=== PATIENT | male | born 1970 | race Caucasian/White ===

== ENCOUNTER 2025-01-14 15:19 | Inpatient (IN) | payer BC, SELFPAY ==
--- NOTE | 2025-01-14 15:28 | ED.GENADULT ---
HPI - General Adult General Chief complaint: Psychiatric Symptoms Stated complaint: psych eval Time Seen by Provider: 01/14/25 16:13 Source: patient Limitations: no limitations History of Present Illness ED Provider: Patito PINK HPI narrative: 54-year-old male with a history of alcohol use disorder and hypertension presents with a vague SI. Patient states he has had symptoms for years, the every once in a while everything becomes overwhelming. Patient does not have a specific plan for self-harm, he does not have any prior attempts. In regard to his alcohol use, he states he drinks 20 nips a day, he last drank this morning. Patient was not had prior alcohol withdrawal, no seizure activity. Related Data Home Medications ?Medication ?Instructions ?Recorded ?Confirmed atenolol 25 mg tablet 25 mg PO DAILY 01/15/25 01/15/25 hydrochlorothiazide 25 mg tablet 12.5 mg PO DAILY 01/15/25 01/15/25 lisinopril 10 mg tablet 10 mg PO DAILY 01/15/25 01/15/25 metformin 500 mg tablet,extended 500 mg PO DAILY 01/15/25 01/15/25 release 24 hr rosuvastatin 40 mg tablet 20 mg PO BEDTIME 01/15/25 01/15/25 tamsulosin 0.4 mg capsule 0.4 mg PO BEDTIME 01/15/25 01/15/25 Allergies Allergy/AdvReac Type Severity Reaction Status Date / Time No Known Allergies Allergy Verified 01/14/25 15:32 Review of Systems Review of Systems: Yes all other systems are reviewed and are negative Constitutional: Constitutional: Denies fatigue and Denies fever(s) Cardiovascular: Cardiovascular: Denies chest pain and Denies dyspnea Respiratory: Respiratory: Denies dyspnea Gastrointestinal: Gastrointestinal: Denies abdominal pain, Denies nausea and Denies vomiting Endocrine: Endocrine: Denies fatigue PMFSH Past Medical History Attestation statement: The following information was validated with the patient. Social History Social History Household Members: None Housing: Apartment Do you presently have visiting nurse or other home services: No Alcohol intake: current Alcohol intake frequency: 3 or more drinks per day Alcohol type: hard liquor Patient Tobacco Use Status: Never used Tobacco Smoked in Last 30 Days: No e-Cigarette/Vaping Use: Never Used Second Hand Smoke Exposure: No Use of substances other than those prescribed or required for medical reasons: No Currently Displaying Signs/Symptoms of Drug Intoxication Withdrawal: No Any prior treatment program specific to substance use: Yes Have you been hit, kicked, punched, or otherwise hurt by someone within the past year? If so, by whom?: No Do you feel safe in your current relationship?: No Current Relationship Is there a partner from a previous relationship who is making you feel unsafe now?: No Are you made to feel afraid or neglected: No Advance Directives: No Advance Directives Information Provided: No Do you have a plan to hurt others: No Plan Recently lost weight without trying: No Eating poorly because of decreased appetite: No Nutrition Risks: No Nutritional Risk Poor oral hygiene: No Physical Exam ED Vital Signs: Vital Signs - 24 hr 01/15/25 20:10 01/16/25 06:17 Temperature 98.4 F 98.7 F Pulse Rate 77 104 H Respiratory Rate 18 18 Blood Pressure 163/85 H 152/91 H Pulse Oximetry 98 96 Oxygen Delivery Method Room Air Room Air BMI result Body Mass Index 41.2 Const Other: Alert Orientation/consciousness: patient oriented x3 Resp Effort & Inspection: normal respiratory effort Cardio Other: Normal peripheral perfusion Skin Other: Warm dry no rash Neuro General: patient oriented x3, gait normal, no focal motor deficits and CN's II-XI intact bilaterally Psych Other: Cooperative Course Course Course Narrative: RME, this is a rapid medical exam performed by Anibal Olivas please refer to primary provider for complete H&P- 54 year old male presents for evaluation of depression with suicidal ideations. He reports that he is an alcoholic and his last drink was about 4 hours ago. He reports drinking about 20 nips starting late last night, but his baseline is about 10 per day. This depression has happened in the past. Plan for medical clearance and care team evaluation Reevaluation(s) Reevaluation #1: Getting a call from the [facility], the patient was becoming anxious to see was 5 we will give 5 mg of oral Valium Time: 17:20 Reevaluation #2: Patient's CIWA is escalating it was now 7 he is tremulous and sweaty, we will initiate phenobarb protocol Time: 18:21 Reevaluation #3: Time: 20:57 Date: 01/14/25 Provider: KEERTHI Gardiner Patient in physician observation for psychiatric evaluation.? No acute events reported overnight. No current complaints. VS stable.? Patient is in bed search status/pending CARE team evaluation. Will continue to monitor. Additional Reevaluation(s): 01/15/2025; 14;38 Patient in physician observation for psychiatric evaluation.? No acute events reported overnight. No current complaints. VS stable.? Patient is in bed search status. Will continue to monitor. Time: 06:04 Date: 01/16/25 Provider: Corey Ambrose MD Patient in physician observation for psychiatric evaluation.? The patient was been in the emergency department for 38 hours. Patient was re-evaluated by the care team yesterday, patient was now a dual diagnosis admission bed search. No acute events reported overnight. No current complaints. Will continue to monitor. Time: 14:14 I Date: 01/16/25 Provider: Corey Ambrose MD Physician observation ended at 14:14. Patient to be admitted as inpatient to [facility]. Medications Administered Generic Name Dose Route Start Last Admin Trade Name Freq PRN Reason Stop Dose Admin Atenolol 25 mg 01/15/25 09:00 01/16/25 08:19 Atenolol 25 Mg Tablet PO 25 mg DAILY KYLEE Administration Atorvastatin Calcium 80 mg 01/15/25 09:00 01/16/25 08:19 Atorvastatin Calcium 80 Mg Tablet PO 80 mg DAILY KYLEE Administration Hydrochlorothiazide 12.5 mg 01/16/25 09:00 01/16/25 08:19 Hydrochlorothiazide 25 Mg Tablet PO 12.5 mg DAILY KYLEE Administration Lisinopril 10 mg 01/15/25 09:00 01/16/25 08:19 Lisinopril 10 Mg Tablet PO 10 mg DAILY KYLEE Administration Metformin HCl 500 mg 01/16/25 09:00 01/16/25 08:19 Metformin Hcl Er 500 Mg Tab.Er.24h PO 500 mg DAILY KYLEE Administration Phenobarbital 45 mg 01/15/25 09:00 01/16/25 08:19 Phenobarbital 15 Mg Tablet PO 01/16/25 21:01 45 mg BID KYLEE Administration Tamsulosin HCl 0.4 mg 01/15/25 21:00 01/15/25 20:19 Tamsulosin Hcl 0.4 Mg Capsule PO 0.4 mg BEDTIME KYLEE Administration Discontinued Medications Generic Name Dose Route Start Last Admin Trade Name Freq PRN Reason Stop Dose Admin Diazepam 5 mg 01/14/25 17:21 01/14/25 17:28 Diazepam 5 Mg Tablet PO 01/14/25 17:22 5 mg ONCE ONE Administration Diazepam 5 mg 01/15/25 13:39 01/15/25 13:50 Diazepam 5 Mg Tablet PO 01/15/25 13:40 5 mg ONCE ONE Administration Diazepam 5 mg 01/15/25 20:41 01/15/25 20:56 Diazepam 5 Mg Tablet PO 01/15/25 20:42 5 mg ONCE ONE Administration Diphenhydramine HCl 50 mg 01/15/25 02:25 01/15/25 02:35 Diphenhydramine Hcl 25 Mg Capsule PO 01/15/25 02:26 Not Given ONCE ONE Hydrochlorothiazide 25 mg 01/15/25 09:00 01/15/25 08:39 Hydrochlorothiazide 25 Mg Tablet PO 25 mg DAILY KYLEE Administration Lorazepam 2 mg 01/16/25 06:21 01/16/25 06:23 Lorazepam 1 Mg Tablet PO 01/16/25 06:22 2 mg ONCE ONE Administration Metformin HCl 500 mg 01/15/25 09:00 01/15/25 08:39 Metformin Hcl 500 Mg Tablet PO 500 mg DAILY KYLEE Administration Ondansetron HCl 4 mg 01/14/25 15:57 01/14/25 16:00 Ondansetron Odt 4 Mg Tab.Rapdis TRANSLINGU 01/14/25 15:58 4 mg ONCE ONE Administration Phenobarbital Sodium 212 mg 01/14/25 22:00 01/15/25 01:05 Phenobarbital Sodium 130 Mg/Ml Vial Im Q3hx2 IM 01/15/25 01:01 212 mg 0100,2200 KYLEE Administration Phenobarbital Sodium 283 mg 01/14/25 19:00 01/14/25 19:30 Phenobarbital Sodium 130 Mg/Ml Im Once IM 01/14/25 19:01 283 mg ONCE@1900 KYLEE Administration Medical Decision Making Medical Decision Making MDM Narrative: 54-year-old male with a history of alcohol use disorder and hypertension presents with a vague SI. Patient states he has had symptoms for years, the every once in a while everything becomes overwhelming. Patient does not have a specific plan for self-harm, he does not have any prior attempts. In regard to his alcohol use, he states he drinks 20 nips a day, he last drank this morning. Patient was not had prior alcohol withdrawal, no seizure activity. Problem: Alcohol abuse History: Per patient I have considered the following differential diagnoses: SI, HI, decompensated psychiatric illness, drug/alcohol intoxication Plan: Screening labs including serum ethanol and drug screen were obtained from triage, the patient will be assessed by the care team once clinically sober. I have independently reviewed the following tests: Labs: No leukocytosis, not anemic, no electrolyte abnormality, ethanol 174, drug screen Lab Data 01/14/25 16:01 01/14/25 16:01 Labs: Lab Results 01/14/25 01/14/25 01/15/25 Range/Units 16:01 17:32 21:03 WBC 5.1 (4.8-10.8) X10*3/uL RBC 5.15 (4.60-5.80) X10*6/uL Hgb 16.3 (14.0-18.0) g/dl Hct 47.2 (42.0-52.0) % MCV 91.7 (80.0-98.0) fL MCH 31.7 (27.0-33.0) pg MCHC 34.5 (31.0-36.0) g/dl RDW 12.6 (11.0-16.0) % Plt Count 281 (160-400) X10*3/uL MPV 9.3 L (9.4-12.4) fL Immature Gran % (Auto) 0.2 (0.0-0.4) % Neut % (Auto) 52.9 (45-73) % Lymph % (Auto) 35.2 (20-40) % Keith % (Auto) 9.7 (2-11) % Eos % (Auto) 1.0 (0-4) % Baso % (Auto) 1.0 (0-2) % Lymph # (Auto) 1.8 (1.2-4.9) X10*3/uL Keith # (Auto) 0.5 (0.1-1.2) X10*3/uL Eos # (Auto) 0.1 (0.0-0.4) X10*3/uL Baso # (Auto) 0.1 (0.0-0.2) X10*3/uL Abs Immat Gran (auto) 0.01 (0.00-0.03) X10*3/uL Absolute Neuts (auto) 2.7 (2.0-8.3) x10*3/uL Absolute Nucleated RBC 0.000 (0.0-0.012) X10*3/uL Nucleated RBC % (auto) 0.0 (0.0-0.2) /100WBC Sodium 139 (135-145) mmol/L Potassium 4.2 (3.3-5.1) mmol/L Chloride 99 (96-108) mmol/L Carbon Dioxide 27 (22-29) mmol/L Anion Gap 17 (12-20) BUN 16 (9-16) mg/dL Creatinine 1.24 (0.5-1.4) mg/dL Estim Creat Clear Calc 89.6 Estimated GFR > 60 POC Glucose 149 H (60-115) mg/dL Random Glucose 186 H (60-115) mg/dL Calcium 9.5 (8.4-10.2) mg/dL Total Bilirubin 1.1 H (0.0-1.0) mg/dL AST 181 H (5-37) U/L ALT 149 H (0-40) U/L Alkaline Phosphatase 62 (39-117) U/L Total Protein 7.9 (6.5-8.0) g/dL Albumin 4.5 (3.5-5.0) g/dL Urine Color Yellow Urine Appearance Clear Urine pH 5.5 (5.0-9.0) Ur Specific Leupp 1.020 (1.005-1.025) Urine Protein 100 (2+) H (Neg-Trace) mg/dL Urine Glucose (UA) Negative (Negative) mg/dL Urine Ketones Trace (Negative) mg/dL Urine Blood Small (1+) H (Negative) Urine Nitrite Negative (Negative) Ur Leukocyte Esterase Negative (Negative) Urine RBC 0-2 (0-2) /HPF Urine WBC 0-5 (0-5) /HPF Ur Squamous Epith Cells 0-2 (0-2) /HPF Other Crystals Present Urine Bacteria None Seen (None Seen) Hyaline Casts 3-5 (0-2) /LPF Salicylates < 5.0 L (15-30) mg/dL Urine Opiates Screen Not Detected (Not Detect) Ur Buprenorphine Scrn Not Detected (Not Detect) ng/mL Ur Oxycodone Screen Not Detected (Not Detect) ng/mL Urine Methadone Screen Not Detected (Not Detect) ng/mL Urine Fentanyl Screen Not Detected (Not Detect) Acetaminophen < 3 (<30) mcg/mL Ur Barbiturates Screen Not Detected (Not Detect) Ur Phencyclidine Scrn Not Detected (Not Detect) Ur Amphetamines Screen Not Detected (Not Detect) U Benzodiazepines Scrn Not Detected (Not Detect) Urine Cocaine Screen Not Detected (Not Detect) U Marijuana (THC) Screen Not Detected (Not Detect) Ethyl Alcohol 174 mg/dL 01/16/25 Range/Units 06:13 WBC (4.8-10.8) X10*3/uL RBC (4.60-5.80) X10*6/uL Hgb (14.0-18.0) g/dl Hct (42.0-52.0) % MCV (80.0-98.0) fL MCH (27.0-33.0) pg MCHC (31.0-36.0) g/dl RDW (11.0-16.0) % Plt Count (160-400) X10*3/uL MPV (9.4-12.4) fL Immature Gran % (Auto) (0.0-0.4) % Neut % (Auto) (45-73) % Lymph % (Auto) (20-40) % Keith % (Auto) (2-11) % Eos % (Auto) (0-4) % Baso % (Auto) (0-2) % Lymph # (Auto) (1.2-4.9) X10*3/uL Keith # (Auto) (0.1-1.2) X10*3/uL Eos # (Auto) (0.0-0.4) X10*3/uL Baso # (Auto) (0.0-0.2) X10*3/uL Abs Immat Gran (auto) (0.00-0.03) X10*3/uL Absolute Neuts (auto) (2.0-8.3) x10*3/uL Absolute Nucleated RBC (0.0-0.012) X10*3/uL Nucleated RBC % (auto) (0.0-0.2) /100WBC Sodium (135-145) mmol/L Potassium (3.3-5.1) mmol/L Chloride (96-108) mmol/L Carbon Dioxide (22-29) mmol/L Anion Gap (12-20) BUN (9-16) mg/dL Creatinine (0.5-1.4) mg/dL Estim Creat Clear Calc Estimated GFR POC Glucose 153 H (60-115) mg/dL Random Glucose (60-115) mg/dL Calcium (8.4-10.2) mg/dL Total Bilirubin (0.0-1.0) mg/dL AST (5-37) U/L ALT (0-40) U/L Alkaline Phosphatase (39-117) U/L Total Protein (6.5-8.0) g/dL Albumin (3.5-5.0) g/dL Urine Color Urine Appearance Urine pH (5.0-9.0) Ur Specific Leupp (1.005-1.025) Urine Protein (Neg-Trace) mg/dL Urine Glucose (UA) (Negative) mg/dL Urine Ketones (Negative) mg/dL Urine Blood (Negative) Urine Nitrite (Negative) Ur Leukocyte Esterase (Negative) Urine RBC (0-2) /HPF Urine WBC (0-5) /HPF Ur Squamous Epith Cells (0-2) /HPF Other Crystals Urine Bacteria (None Seen) Hyaline Casts (0-2) /LPF Salicylates (15-30) mg/dL Urine Opiates Screen (Not Detect) Ur Buprenorphine Scrn (Not Detect) ng/mL Ur Oxycodone Screen (Not Detect) ng/mL Urine Methadone Screen (Not Detect) ng/mL Urine Fentanyl Screen (Not Detect) Acetaminophen (<30) mcg/mL Ur Barbiturates Screen (Not Detect) Ur Phencyclidine Scrn (Not Detect) Ur Amphetamines Screen (Not Detect) U Benzodiazepines Scrn (Not Detect) Urine Cocaine Screen (Not Detect) U Marijuana (THC) Screen (Not Detect) Ethyl Alcohol mg/dL Discharge Plan Discharge Clinical Impression: Suicidal ideation, Alcohol use disorder, Alcohol withdrawal Patient Disposition: Admitted As Inpatient Interventions: Admission Worksheet (ED) Last Done: 01/16/25 13:54 Discharge Date/Time: 01/16/25 14:10
[2025-01-14 15:30] VITALS: BP 147/96; PULSE 109; RESP 18; TEMP 36.8; O2SAT 94; BMI 41.2
--- NOTE | 2025-01-14 15:33 | ECG_ITS ---
Test Reason : AGE>50 Blood Pressure : */* mmHG Vent. Rate : 108 BPM Atrial Rate : 108 BPM P-R Int : 186 ms QRS Dur : 90 ms QT Int : 332 ms P-R-T Axes : 36 50 1 degrees QTcB Int : 444 ms Sinus tachycardia cannot exclude old Inferior infarct , age undetermined cannot exclude old Anterior infarct , age undetermined Abnormal ECG No previous ECGs available Referred By: Sean Olivas Electronically Signed By: HAL OHARA
[2025-01-14] MEDS: Ondansetron ODT 4 MG TAB.RAPDIS TRANSLINGU (16:00)
--- OUTSIDE RECORDS SUMMARY | 2025-01-14 16:03 | XMS_ITS | Clinical Summary ---
Author Organization [address] [place] [address] [place] [id number] Phone Care Team Providers Care [employer] Name Role Phone Unavailable Primary Care Provider Unavailabl e Allergies No known active allergies Medications hydroCHLOROthia zide (MICROZIDE) 12.5 mg capsule Take 1 capsule (12.5 mg total) by mouth. 10/24/2019 Active FLUoxetine (PROzac) 40 mg capsule Take 1 capsule (40 mg total) by mouth 1 (one) time each day. 10/24/2019 Active Medical History Medical History Date Comments Hypertension DX:Hypertension Social History Tobacco Use Types Packs/Day Years Used Date Smoking Tobacco: Never Smokeless Tobacco: Never Alcohol Use Standard Drinks/Week Comments Yes 0 (1 standard drink = 0.6 oz pur e alcohol) Sex and Gender Information Value Date Recorded Sex Assigned at Not on file Legal Sex Male 12:31 PM EST Gender Identity Not on file Sexual Orientation Not on file Obstetrics History Last Filed Vital Signs Vital Sign Reading Time Taken Comments Blood Pressure 156/70 08/01/2024 5:45 PM EST Pulse 88 08/01/2024 5:45 PM EST Temperature 36.8 ??C (98.2 ??F) 08/01/2024 5:45 PM ES T Respiratory Rate - - Oxygen Saturation 98% 08/01/2024 5:45 PM EST Inhaled Oxygen Concentration - - Weight - - Height - - Body Mass Index - - Plan of Treatment Health Maintenance Due Date Last Done Comments Diabetes: Annual Foot Exam 1980 Diabetes: Annual Retina Eye Exam 1980 Hepatitis B Vaccines (1 of 3 - 19+ 3-dose series) 1989 Pneumococcal Vaccine: 50+ Years (2 of 2 - PCV) 2020 02/22/2018 Zoster Vaccines (1 of 2) 2020 Diabetes: Annual GFR (Glomerular Filtration Rate) 10/23/2020 10/23/2019 COVID-19 Vaccine (4 - 2023-2 5 season) 2024 08/22/2021, 12/10/2020, 11/19/2020 Cholesterol Screening (Lipid Panel) 08/01/2024 Colorectal Cancer Screening: Colonoscopy 08/01/2024 Depression Screening 08/01/2024 Diabetes: Annual Urine Albumin-Creatinine Ratio (uACR) 08/01/2024 Diabetes: Blood Sugar Contro l Test (HGBA1C) 08/01/2024 HIV Screening 08/01/2024 Hepatitis C Screening 08/01/2024 Hypertension/CHF/CAD Annual BMP Blood Test 08/01/2024 10/23/2019 Social Influencers of Health Screening 08/01/2024 Influenza Vaccine (Season Ended) 2025 DTaP,Tdap,and Td Vaccines (2 - Td or Tdap) 02/23/2028 02/22/2018 Pneumococcal Vaccine: Pediatrics (0 to 5 Years) and At-Risk Patients (6 to 64 Years) Aged Out 02/22/2018 No longer eligible b ased on patient's age to complete this topic HIB Vaccines Aged Out No longer eligi ble based on patient's age to complete this topic HPV Vaccines Aged Out No longer eligi ble based on patient's age to complete this topic Hepatitis A Vaccines Aged Out No long er eligible based on patient's age to complete this topic IPV Vaccines Aged Out No longer eligi ble based on patient's age to complete this topic MMR Vaccines Aged Out No longer eligi ble based on patient's age to complete this topic Meningococcal ACWY Vaccine Aged Out N o longer eligible based on patient's age to complete this topic Meningococcal B Vaccine Aged Out No l onger eligible based on patient's age to complete this topic RSV Immunization Patients Under 20 months Aged Out No longer eligible b ased on patient's age to complete this topic Varicella Vaccines Aged Out No longer eligible based on patient's age to complete this topic Insurance [facility]
[2025-01-14 16:12] LABS: MANUAL DIFF FLAG NO
[2025-01-14 16:14] LABS: Basophils Absolute Auto 0.1 X10*3/uL (0.0-0.2); Eosinophils Absolute Auto 0.1 X10*3/uL (0.0-0.4); Hematocrit 47.2 % (42.0-52.0); Hemoglobin 16.3 g/dl (14.0-18.0); Imm Gran Abs Auto 0.01 X10*3/uL (0.00-0.03); Imm Gran Pct Auto 0.2 % (0.0-0.4); Lymphocytes Absolute Auto 1.8 X10*3/uL (1.2-4.9); Lymphocytes Percent Auto 35.2 % (20-40); Mean Corpuscular HGB Conc 34.5 g/dl (31.0-36.0); Mean Corpuscular Hemoglobin 31.7 pg (27.0-33.0); Mean Corpuscular Volume 91.7 fL (80.0-98.0); Mean Platelet Volume 9.3 fL (9.4-12.4); Monocytes Absolute Auto 0.5 X10*3/uL (0.1-1.2); Monocytes Percent Auto 9.7 % (2-11); Neutrophils Absolute Auto 2.7 x10*3/uL (2.0-8.3); Neutrophils Percent Auto 52.9 % (45-73); Platelet Count 281 X10*3/uL (160-400); Red Blood Count 5.15 X10*6/uL (4.60-5.80); Red Cell Distribution Width 12.6 % (11.0-16.0); White Blood Count 5.1 X10*3/uL (4.8-10.8)
[2025-01-14 16:29] LABS: Acetaminophen LAB < 3 mcg/mL (<30); Alanine Aminotransferase 149 U/L (0-40); Albumin Level 4.5 g/dL (3.5-5.0); Alkaline Phosphatase 62 U/L (39-117); Anion Gap 17 (12-20); Aspartate Amino Transferase 181 U/L (5-37); Bilirubin Total 1.1 mg/dL (0.0-1.0); Blood Urea Nitrogen 16 mg/dL (9-16); Calcium 9.5 mg/dL (8.4-10.2); Carbon Dioxide 27 mmol/L (22-29); Chloride 99 mmol/L (96-108); Creatinine Clr Calc Pharmacy 89.6; Estimated Glomerular Filt Rate > 60; Ethanol 174 mg/dL; Glucose Random 186 mg/dL (60-115); Potassium 4.2 mmol/L (3.3-5.1); Salicylate < 5.0 mg/dL (15-30); Sodium 139 mmol/L (135-145); Total Protein 7.9 g/dL (6.5-8.0)
[2025-01-14] MEDS: diazePAM 5 MG TABLET PO (17:28)
[2025-01-14 17:39] LABS: Appearance Urine Clear; Color Urine Yellow; Glucose Urine UA Negative (Negative); Leukocyte Esterase Urine Negative (Negative); Nitrite Urine Negative (Negative); PH 5.5 (5.0-9.0); UMIC TRIGGER UACC YES; Urine Blood Small (1+) (Negative); Urine Ketones Trace mg/dL (Negative); Urine Protein 100 (2+) mg/dL (Neg-Trace)
[2025-01-14 17:46] LABS: Bacteria Urine None Seen (None Seen); Other Crystals Urine Present; RBC Urine 0-2 /HPF (0-2); Squamous Epithelial Cell Urine 0-2 /HPF (0-2); WBC Urine 0-5 /HPF (0-5)
[2025-01-14 17:48] LABS: Amphetamine Screen Urine Not Detected (Not Detect); Barbiturates, Urine Not Detected (Not Detect); Benzodiazepines Screen Urine Not Detected (Not Detect); Buprenorphine Scr Not Detected (Not Detect); Cannabinoid Screen Urine Not Detected (Not Detect); Cocaine Screen Urine Not Detected (Not Detect); Fentanyl, urine Not Detected (Not Detect); Methadone Screen, Urine Not Detected (Not Detect); Opiate Screen Urine Not Detected (Not Detect); Oxycodone Screen Urine Not Detected (Not Detect); Phencyclidine Screen Urine Not Detected (Not Detect)
[2025-01-14 19:13] VITALS: BP 141/96; PULSE 111; RESP 20; TEMP 36.8; O2SAT 97
[2025-01-14] MEDS: PHENobarbitaL sodium 130 MG/ML IM ONCE 283 MG IM (19:30)
[2025-01-14] MEDS: PHENobarbitaL sodium 130 MG/ML VIAL IM Q3Hx2 212 MG IM (22:11)
[2025-01-15] VITALS (7 sets, daily range): BP systolic 119–170; BP diastolic 81–101; PULSE 77–120; RESP 16–20; TEMP 36.8–37.1; O2SAT 96–99
[2025-01-15] MEDS: PHENobarbitaL sodium 130 MG/ML VIAL IM Q3Hx2 212 MG IM (01:05)
--- NOTE | 2025-01-15 02:46 | PC.NURSE ---
patient offered benadryl for insmonia and declined i ant to be awake for whats going to happen tomorrow' seemed odd in presentation.
--- NOTE | 2025-01-15 08:15 | PC.NURSE ---
Ambulatory in department. Reporting feeling increased anxiety. Is calm and cooperative.
[2025-01-15] MEDS: metFORMIN HCl 500 MG TABLET PO (08:39)
[2025-01-15] MEDS: PHENobarbitaL 15 MG TABLET 45 MG PO ×2 (08:39→20:20)
[2025-01-15] MEDS: hydroCHLOROthiazide 25 MG TABLET PO (08:39)
[2025-01-15] MEDS: atenoloL 25 MG TABLET PO (08:39)
[2025-01-15] MEDS: Atorvastatin Calcium 80 MG TABLET PO (08:40)
[2025-01-15] MEDS: lisinopriL 10 MG TABLET PO (08:40)
--- NOTE | 2025-01-15 12:01 | PHA.MEDREC ---
Pharmacy Consult ? Medication Reconciliation Pharmacy has completed the medication reconciliation. Reviewed med rec done by nursing and [facility]Z [facility] 1/2 tab daily. Nurse Piedad confirmed with patient he takes 1/2 tab daily.
[2025-01-15] MEDS: diazePAM 5 MG TABLET PO ×2 (13:50→20:56)
--- NOTE | 2025-01-15 14:02 | MHC.CARE ---
Dispostion changed from ADult inpatient psychiatric admission to Dual DX admission
[2025-01-15] MEDS: Tamsulosin HCL 0.4 MG CAPSULE PO (20:19)
[2025-01-15 21:06] LABS: Glucose, Whole Blood 149 mg/dL (60-115)
--- NOTE | 2025-01-16 04:13 | PC.NURSE ---
Patient slept though the night, no distress observed/reported, meds and meals compliant, 15 minutes safety check, no behavior and safety concerns, Patient is on Phenobarbital for ETOH withdrawal, disposition per care team is dual diagnosis bed search, will continue to monitor.
[2025-01-16 06:17] VITALS: BP 152/91; PULSE 104; RESP 18; TEMP 37.1; O2SAT 96
[2025-01-16 06:17] LABS: Glucose, Whole Blood 153 mg/dL (60-115)
[2025-01-16] MEDS: LORazepam 1 MG TABLET 2 MG PO (06:23)
--- NOTE | 2025-01-16 07:04 | PC.NURSE ---
Assumed care of pt at 6:45. Pt appears to be sleeping. Respirations even and unlabored. No apparent distress. Continue plan of care for dual diagnosis.
[2025-01-16] MEDS: atenoloL 25 MG TABLET PO (08:19)
[2025-01-16] MEDS: hydroCHLOROthiazide 25 MG TABLET 12.5 MG PO (08:19)
[2025-01-16] MEDS: metFORMIN HCl ER 500 MG TAB.ER.24H PO (08:19)
[2025-01-16] MEDS: lisinopriL 10 MG TABLET PO (08:19)
[2025-01-16] MEDS: PHENobarbitaL 15 MG TABLET 45 MG PO ×2 (08:19→21:18)
[2025-01-16] MEDS: Atorvastatin Calcium 80 MG TABLET PO (08:19)
[2025-01-16 14:21] VITALS: BMI 40.0
[2025-01-16 14:25] VITALS: BP 153/92; PULSE 76; RESP 20; TEMP 37.2; O2SAT 96
--- NOTE | 2025-01-16 15:51 | P.HPPS_ITS ---
[facility] Date of Service: 01/16/25 Chief Complaint: Crisis Sources of Information: patient interviewed, chart reviewed and crisis/core team assessment reviewed HPI Subjective Notes: Wade Warning and Conditional Voluntary Narrative: Patient is a 54-year-old male with history of MDD, PTSD, alcohol use disorder who self presented to ER due to suicidal ideation secondary to increased depression. Per crisis report, patient presented to ED due to suicidal ideation stating he wants whatever we will make me feel better. Patient reports he has been using alcohol as a coping mechanism for his depression and anxiety. He reports lack of motivation to go to work, racing thoughts, heightened worry and daily stomach pain attributed to anxiety. Tearful during assessment. He reports poor sleep due to racing thoughts. Patient does not take any psychiatric medications at this time. History of 1 prior psychiatric admission 4 years ago due to worsening depression. Denies history of SA/SIB. History of detox admissions. He reports he has never been sober. ETOH level 174 in ER. He reports drinking 20 nips daily. During admission assessment, patient presents alert and oriented x3. Calm and cooperative. Patient reports feeling anxious and depressed; patient reports he feels that his drinking has become more. Patient stated, work has been getting stressful. My girlfriend wants our relationship to be more serious. I have anxiety and to calm my nerves, alcohol is the only thing that calms me down . History of taking Prozac for 2-3 years which he reports was not beneficial and side effects of decreased libido. Patient reports last time he was sober was over 10 years ago. Patient states suicidal ideation with no plan. Denies history of withdrawal seizures. Patient reports he is interested in obtaining a recovery engineer and being referred to a substance abuse program. He reports he would also like referrals to outpatient psychiatric providers. Discussed starting on Wellbutrin and Abilify; risks/benefits reviewed. Past Psychiatric History: Patient does not have outpatient psychiatric providers. Denies history of SA/SIB. History of detox admission. History of 1 prior inpatient psychiatric hospitalization, 4 years ago due to increased depression. History of taking Prozac; patient reports he believes it was not beneficial and he reports side effects of decreased libido. Medical Evaluation Reviewed: Yes PMFSH Family History: Mother: Depression Aunt: Depression Social History: Lives alone. Single. No kids. 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 Some college. Substance History: Patient reports drinking 15 nips a day for the past 3 years. Denies any other substance use. Trauma History: Yes Diagnostics Vital Signs (24Hr): Vital Signs - 24 hr 01/15/25 20:10 01/16/25 06:17 01/16/25 14:25 Temperature 98.4 F 98.7 F 98.9 F Pulse Rate 77 104 H 76 Respiratory Rate 18 18 20 Blood Pressure 163/85 H 152/91 H 153/92 H Pulse Oximetry 98 96 96 Oxygen Delivery Method Room Air Room Air Room Air BMI result Body Mass Index 40.0 Labs 01/14/25 16:01 01/14/25 16:01 Labs: Laboratory Results - last 48 hr 01/14/25 01/14/25 01/15/25 16:01 17:32 21:03 WBC 5.1 RBC 5.15 Hgb 16.3 Hct 47.2 MCV 91.7 MCH 31.7 MCHC 34.5 RDW 12.6 Plt Count 281 MPV 9.3 L Immature Gran % (Auto) 0.2 Neut % (Auto) 52.9 Lymph % (Auto) 35.2 [place] % (Auto) 9.7 Eos % (Auto) 1.0 Baso % (Auto) 1.0 Lymph # (Auto) 1.8 [place] # (Auto) 0.5 Eos # (Auto) 0.1 Baso # (Auto) 0.1 Abs Immat Gran (auto) 0.01 Absolute Neuts (auto) 2.7 Absolute Nucleated RBC 0.000 Nucleated RBC % (auto) 0.0 Sodium 139 Potassium 4.2 Chloride 99 Carbon Dioxide 27 Anion Gap 17 BUN 16 Creatinine 1.24 Estim Creat Clear Calc 89.6 Estimated GFR > 60 POC Glucose 149 H Random Glucose 186 H Calcium 9.5 Total Bilirubin 1.1 H AST 181 H ALT 149 H Alkaline Phosphatase 62 Total Protein 7.9 Albumin 4.5 Urine Color Yellow Urine Appearance Clear Urine pH 5.5 Ur Specific [place] 1.020 Urine Protein 100 (2+) H Urine Glucose (UA) Negative Urine Ketones Trace Urine Blood Small (1+) H Urine Nitrite Negative Ur Leukocyte Esterase Negative Urine RBC 0-2 Urine WBC 0-5 Ur Squamous Epith Cells 0-2 Other Crystals Present Urine Bacteria None Seen Hyaline Casts 3-5 Salicylates < 5.0 L Urine Opiates Screen Not Detected Ur Buprenorphine Scrn Not Detected Ur Oxycodone Screen Not Detected Urine Methadone Screen Not Detected Urine Fentanyl Screen Not Detected Acetaminophen < 3 Ur Barbiturates Screen Not Detected Ur Phencyclidine Scrn Not Detected Ur Amphetamines Screen Not Detected U Benzodiazepines Scrn Not Detected Urine Cocaine Screen Not Detected U Marijuana (THC) Screen Not Detected Ethyl Alcohol 174 01/16/25 06:13 WBC RBC Hgb Hct MCV MCH MCHC RDW Plt Count MPV Immature Gran % (Auto) Neut % (Auto) Lymph % (Auto) [place] % (Auto) Eos % (Auto) Baso % (Auto) Lymph # (Auto) [place] # (Auto) Eos # (Auto) Baso # (Auto) Abs Immat Gran (auto) Absolute Neuts (auto) Absolute Nucleated RBC Nucleated RBC % (auto) Sodium Potassium Chloride Carbon Dioxide Anion Gap BUN Creatinine Estim Creat Clear Calc Estimated GFR POC Glucose 153 H Random Glucose Calcium Total Bilirubin AST ALT Alkaline Phosphatase Total Protein Albumin Urine Color Urine Appearance Urine pH Ur Specific [place] Urine Protein Urine Glucose (UA) Urine Ketones Urine Blood Urine Nitrite Ur Leukocyte Esterase Urine RBC Urine WBC Ur Squamous Epith Cells Other Crystals Urine Bacteria Hyaline Casts Salicylates Urine Opiates Screen Ur Buprenorphine Scrn Ur Oxycodone Screen Urine Methadone Screen Urine Fentanyl Screen Acetaminophen Ur Barbiturates Screen Ur Phencyclidine Scrn Ur Amphetamines Screen U Benzodiazepines Scrn Urine Cocaine Screen U Marijuana (THC) Screen Ethyl Alcohol Meds/Allergies Meds Home Medications ?Medication ?Instructions ?Recorded ?Confirmed ?Type atenolol 25 mg tablet 25 mg PO DAILY 01/15/25 01/15/25 History hydrochlorothiazide 25 mg tablet 12.5 mg PO DAILY 01/15/25 01/15/25 History lisinopril 10 mg tablet 10 mg PO DAILY 01/15/25 01/15/25 History metformin 500 mg tablet,extended 500 mg PO DAILY 01/15/25 01/15/25 History release 24 hr rosuvastatin 40 mg tablet 20 mg PO BEDTIME 01/15/25 01/15/25 History tamsulosin 0.4 mg capsule 0.4 mg PO BEDTIME 01/15/25 01/15/25 History Allergies Allergies Allergy/AdvReac Type Severity Reaction Status Date / Time No Known Allergies Allergy Verified 01/14/25 15:32 Mental Status Exam Mental Status Exam Narrative: Pt is alert and oriented; behavior is cooperative and calm; dressed in casual attire; mood is described as anxious and depressed ; eye contact appropriate; Speech is normal rate, volume and not pressured; thought process is organized and goal directed; Thought content is on tx; denies HI/VH/AH. Patient reports suicidal ideation with no plan. Assessment & Plan Assessment & Plan (1) MDD (major depressive disorder), recurrent episode, moderate: Status: Acute Code(s): F33.1 - Major depressive disorder, recurrent, moderate (2) PTSD (post-traumatic stress disorder): Status: Acute Code(s): F43.10 - Post-traumatic stress disorder, unspecified (3) Alcohol use disorder: Status: Acute Code(s): F10.90 - Alcohol use, unspecified, uncomplicated Plan Patient is a 54-year-old male with history of MDD, PTSD, alcohol use disorder who self presented to ER due to suicidal ideation secondary to increased depression. Plan: CV 15 minute safety checks Continue home medications Start: Wellbutrin XL 150 mg PO daily Abilify 2 mg PO bedtime CIWA protocol-continue phenobarbital taper from ED Obtain collateral Encourage groups Consult to addiction medicine Referral to outpatient psychiatric providers Referral to substance abuse program Discharge planning Patient educated on: diagnosis and medication risk/benefits Reason for continued inpatient stay Substantial Risk for: harm to self and med/psych decompensation Statement Statement: I have reviewed the history and physical and performed a pertinent examination on my patient. No changes have occurred unless specified. If the History and Physical was not performed prior to admission, the Hospitalist's service will be consulted for completing the admission physical. Time Spent With Patient Time: Total time managing care of this patient today _60___ minutes.
--- NOTE | 2025-01-16 16:31 | PC.ADMIT ---
This is the 1st admission for this 54 y.o. male to [facility] at [facility]. Referred by [facility] Care Team with Dx: Major Depressive D/O moderate, Generalized Anxiety D/O, Alcohol Use D/O severe. Nurse to nurse done with [facility] ED Pod prior to admission. Meds verified while in ED Pod, admission orders received from prescriber, Louise Pickering. Arrived on unit at 1414 on [address] and placed on 15 min safety checks. Signed Conditional Voluntary after meeting with prescriber. Precipitating events to admission: self presented to [facility] ED with c/o excessive etoh use, worsening anxiety, depression with SI with no plan or prior attempts. Reported having Dx of OCD, ruminating/perseverating on worse case scenarios for every situation. Medical issues: Hx Htn, enlarged prostrate, type 2 diabetes. Substance issues: Reports drinking 20 nips daily, last drink 01/14/25. CIWA 10 on initial assessment upon admission, currently on Phenobarbital taper for withdrawal. Denies hx withdrawal seizures. Reports he dry heaves when withdrawing as part of anxiety. Reports last dry heaving episode this am upon waking in ED Pod. Reported intermittent waves of nausea during admission process. Reported dark urine due to lack of fluid intake. Provided pitcher of ice water, eating supper in community area at present time. Skin assessment done upon admission with 2 staff present. Cooperative with admission process. Alert and oriented x4. Rates depression and anxiety #10 on scale 1-10(10 worse). Reports SI, no plan or intent. States he would not do this to his sister or mother. Reports recent stressors as sister's Dx of ovarian Ca with surgery, [id number] passing away prior to that. 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 States he got ex-girlfriend involved to help out, but has to pay her.
[2025-01-16 20:00] VITALS: BP 133/82; PULSE 69; RESP 20; TEMP 36.2; O2SAT 99
[2025-01-16] MEDS: ARIPiprazole 2 MG TABLET PO (23:02)
[2025-01-16] MEDS: Tamsulosin HCL 0.4 MG CAPSULE PO (23:02)
[2025-01-16 23:50] VITALS: BP 134/70; PULSE 78; RESP 16; TEMP 36.6; O2SAT 99
[2025-01-17 04:00] VITALS: BP 115/75; PULSE 80; RESP 16; TEMP 36.4; O2SAT 98
[2025-01-17 07:35] VITALS: BP 122/66; PULSE 78; RESP 16; TEMP 36.9; O2SAT 98
[2025-01-17] MEDS: Atorvastatin Calcium 80 MG TABLET PO (08:56)
[2025-01-17] MEDS: lisinopriL 10 MG TABLET PO (08:57)
[2025-01-17] MEDS: buPROPion HCl XL 150 MG TAB.ER.24H PO (08:57)
[2025-01-17] MEDS: Thiamine HCL 100 MG TABLET PO (08:57)
[2025-01-17] MEDS: metFORMIN HCl ER 500 MG TAB.ER.24H PO (08:57)
[2025-01-17] MEDS: atenoloL 25 MG TABLET PO (08:57)
[2025-01-17] MEDS: PHENobarbitaL 15 MG TABLET PO ×2 (08:57→20:32)
[2025-01-17 09:04] LABS: Alanine Aminotransferase 123 U/L (0-40); Albumin Level 4.3 g/dL (3.5-5.0); Alkaline Phosphatase 58 U/L (39-117); Anion Gap 14 (12-20); Aspartate Amino Transferase 157 U/L (5-37); Bilirubin Total 0.9 mg/dL (0.0-1.0); Blood Urea Nitrogen 19 mg/dL (9-16); Calcium 8.9 mg/dL (8.4-10.2); Carbon Dioxide 28 mmol/L (22-29); Chloride 97 mmol/L (96-108); Cholesterol 166 mg/dL (<200); Creatinine Clr Calc Pharmacy 102.2; Estimated Glomerular Filt Rate > 60; Glucose Random 157 mg/dL (60-115); HDL Cholesterol 48 mg/dL (>40); LDL Cholesterol Calculated 41 mg/dL (<100); Potassium 3.6 mmol/L (3.3-5.1); Sodium 135 mmol/L (135-145); Total Protein 7.3 g/dL (6.5-8.0); Triglycerides 386 mg/dL (<150)
[2025-01-17 09:05] LABS: Estimated Average Glucose 177 mg/dL; Hemoglobin A1C 226.3483 umol/L; Hemoglobin A1c % 7.8 % (<6.0); Total Hemoglobin (HGBA1C) 3670.2885 umol/L
[2025-01-17] MEDS: hydroCHLOROthiazide 25 MG TABLET 12.5 MG PO (09:29)
--- NOTE | 2025-01-17 10:23 | P.PNPSI_ITS ---
Subjective Subjective Date of Service: 01/17/25 Reason For Visit: Crisis Subjective Notes: Conditional Voluntary Interim History: Showered. keeping to self. Depressed. Anxious. Patient reports passive suicidal ideation; pt stated, I'm tired of dealing with life . denies any plan or intent. Continue with phenobarbital taper and CIWA. Patient reports nausea; start: Zofran 8mg PO Q8HR PRN. per nursing, slept 7 hours. denies HI/VH/AH. Continue current tx plan. Medication Compliance: Yes Side effects from medications: No Attending Groups: Intermittent Mental Status Exam Mental Status Exam Narrative: Pt is alert and oriented; behavior is cooperative and calm; dressed in casual attire; mood is described as anxious and depressed ; eye contact appropriate; Speech is normal rate, volume and not pressured; thought process is organized and goal directed; Thought content is on tx; denies HI/VH/AH. Patient reports suicidal ideation with no plan. Diagnostics Vital Signs (24Hr): Vital Signs - 24 hr 01/16/25 14:25 01/16/25 20:00 01/16/25 23:50 Temperature 98.9 F 97.1 F 97.8 F Pulse Rate 76 69 78 Respiratory Rate 20 20 16 Blood Pressure 153/92 H 133/82 134/70 Pulse Oximetry 96 99 99 Oxygen Delivery Method Room Air Room Air Room Air 01/17/25 04:00 01/17/25 07:35 Temperature 97.5 F 98.4 F Pulse Rate 80 78 Respiratory Rate 16 16 Blood Pressure 115/75 122/66 Pulse Oximetry 98 98 Oxygen Delivery Method CPAP Room Air BMI result Body Mass Index 40.0 Labs 01/14/25 16:01 01/17/25 08:04 Labs: Laboratory Results - last 48 hr 01/15/25 01/16/25 01/17/25 21:03 06:13 08:04 Sodium 135 Potassium 3.6 Chloride 97 Carbon Dioxide 28 Anion Gap 14 BUN 19 H Creatinine 1.07 Estim Creat Clear Calc 102.2 Estimated GFR > 60 POC Glucose 149 H 153 H Random Glucose 157 H Estimat Average Glucose 177 Hemoglobin A1c % 7.8 H Calcium 8.9 D Total Bilirubin 0.9 AST 157 H ALT 123 H Alkaline Phosphatase 58 Total Protein 7.3 Albumin 4.3 Triglycerides 386 H Cholesterol 166 LDL Cholesterol, Calc 41 HDL Cholesterol 48 Medications Medications Current Medications Acetaminophen (Acetaminophen 325 Mg Tablet) 650 mg PO Q6H PRN PRN Reason: Headache/Pain, Scale 1-10 Al Hydroxide/Mg Hydroxide (Magnesium Hydrox/Alum Hydrox 30 Ml Oral.Susp) 30 ml PO Q6H PRN PRN Reason: Heartburn/Nausea Aripiprazole (Aripiprazole 2 Mg Tablet) 2 mg PO BEDTIME [facility] Last Admin: 01/16/25 23:02 Dose: 2 mg Atenolol (Atenolol 25 Mg Tablet) 25 mg PO DAILY [facility] Last Admin: 01/17/25 08:57 Dose: 25 mg Atorvastatin Calcium (Atorvastatin Calcium 80 Mg Tablet) 80 mg PO DAILY [facility] Last Admin: 01/17/25 08:56 Dose: 80 mg Atorvastatin Calcium (Atorvastatin Calcium 80 Mg Tablet) 80 mg PO DAILY [facility] Last Admin: 01/17/25 10:19 Dose: Not Given Bupropion HCl (Bupropion Hcl Xl 150 Mg Tab.Er.24h) 150 mg PO DAILY [facility] Last Admin: 01/17/25 08:57 Dose: 150 mg Hydrochlorothiazide (Hydrochlorothiazide 25 Mg Tablet) 12.5 mg PO DAILY [facility] Last Admin: 01/17/25 09:29 Dose: 12.5 mg Hydroxyzine HCl (Hydroxyzine Hcl 25 Mg Tablet) 25 mg PO Q6H PRN PRN Reason: mild anxiety Lisinopril (Lisinopril 10 Mg Tablet) 10 mg PO DAILY [facility] Last Admin: 01/17/25 08:57 Dose: 10 mg Magnesium Hydroxide (Milk Of Magnesia 30 Ml Oral.Susp) 30 ml PO DAILY PRN PRN Reason: Constipation Metformin HCl (Metformin Hcl Er 500 Mg Tab.Er.24h) 500 mg PO DAILY [facility] Last Admin: 01/17/25 08:57 Dose: 500 mg Nicotine Polacrilex (Nicotine Polacrilex 2 Mg Gum) 4 mg BUCCAL Q2H PRN PRN Reason: Nicotine Cravings Phenobarbital (Phenobarbital 15 Mg Tablet) 15 mg PO BID [facility] Stop: 01/18/25 21:01 Last Admin: 01/17/25 08:57 Dose: 15 mg Phenobarbital (Phenobarbital 15 Mg Tablet) 15 mg PO DAILY [facility] Stop: 01/20/25 09:01 Tamsulosin HCl (Tamsulosin Hcl 0.4 Mg Capsule) 0.4 mg PO BEDTIME [facility] Last Admin: 01/16/25 23:02 Dose: 0.4 mg Thiamine HCl (Thiamine Hcl 100 Mg Tablet) 100 mg PO DAILY [facility] Last Admin: 01/17/25 08:57 Dose: 100 mg Trazodone HCl (Trazodone Hcl 50 Mg Tablet) 50 mg PO BEDTIME MRX1 PRN PRN Reason: Insomnia Allergies Allergies Allergy/AdvReac Type Severity Reaction Status Date / Time No Known Allergies Allergy Verified 01/14/25 15:32 Assessment & Plan Assessment & Plan (1) MDD (major depressive disorder), recurrent episode, moderate: Status: Acute Code(s): F33.1 - Major depressive disorder, recurrent, moderate (2) PTSD (post-traumatic stress disorder): Status: Acute Code(s): F43.10 - Post-traumatic stress disorder, unspecified (3) Alcohol use disorder: Status: Acute Code(s): F10.90 - Alcohol use, unspecified, uncomplicated Plan Patient is a 54-year-old male with history of MDD, PTSD, alcohol use disorder who self presented to ER due to suicidal ideation secondary to increased depression. Plan: CV 15 minute safety checks Continue home medications Start: Wellbutrin XL 150 mg PO daily Abilify 2 mg PO bedtime CIWA protocol-continue phenobarbital taper from ED Obtain collateral Encourage groups Consult to addiction medicine Referral to outpatient psychiatric providers Referral to substance abuse program Discharge planning 01/17: Showered. keeping to self. Depressed. Anxious. Patient reports passive suicidal ideation; pt stated, I'm tired of dealing with life . denies any plan or intent. Continue with phenobarbital taper and CIWA. Patient reports nausea; start: Zofran 8mg PO Q8HR PRN. per nursing, slept 7 hours. denies HI/VH/AH. Continue current tx plan. Patient educated on: diagnosis, medication risk/benefits and therapeutic strategies Reason for continued inpatient stay Substantial Risk for: med/psych decompensation Time Spent With Patient Time: Total time managing care of this patient today _60___ minutes.
[2025-01-17] MEDS: hydrOXYzine HCL 25 MG TABLET PO (16:13)
[2025-01-17 20:00] VITALS: BP 110/60; PULSE 75; RESP 16; TEMP 36.9; O2SAT 95
[2025-01-17] MEDS: ARIPiprazole 2 MG TABLET PO (20:32)
[2025-01-17] MEDS: Tamsulosin HCL 0.4 MG CAPSULE PO (20:33)
[2025-01-18 07:32] VITALS: BP 144/84; PULSE 89; RESP 16; TEMP 36.7; O2SAT 96
[2025-01-18 08:43] VITALS: BP 144/84
[2025-01-18] MEDS: hydroCHLOROthiazide 25 MG TABLET 12.5 MG PO (08:43)
[2025-01-18] MEDS: Thiamine HCL 100 MG TABLET PO (08:44)
[2025-01-18] MEDS: Atorvastatin Calcium 80 MG TABLET PO (08:44)
[2025-01-18] MEDS: metFORMIN HCl ER 500 MG TAB.ER.24H PO (08:44)
[2025-01-18 08:45] VITALS: BP 144/84; PULSE 89
[2025-01-18] MEDS: atenoloL 25 MG TABLET PO (08:45)
[2025-01-18] MEDS: lisinopriL 10 MG TABLET PO (08:45)
[2025-01-18] MEDS: buPROPion HCl XL 150 MG TAB.ER.24H PO (08:45)
[2025-01-18] MEDS: PHENobarbitaL 15 MG TABLET PO ×2 (08:45→21:11)
--- NOTE | 2025-01-18 09:20 | HO.PSYCHPN ---
Subjective Subjective Date of Service: 01/18/25 Reason For Visit: Crisis Subjective Notes: Conditional Voluntary Interim History: Patient continues depressed and anxious; pt stated, I pray that I could and start all over again . Patient reports he has been keeping to himself and praying; pt requested to speak with clergy, nursing aware. Pt continues to report withdrawal symptoms but feels symptoms are decreasing. Continue with phenobarbital taper and CIWA. Plan to increase Wellbutrin dose on Thursday. Patient has phone screen today with substance abuse program. Medication Compliance: Yes Side effects from medications: No Attending Groups: No Mental Status Exam Mental Status Exam Narrative: Pt is alert and oriented; behavior is cooperative and calm; dressed in casual attire; mood is described as anxious and depressed ; eye contact appropriate; Speech is normal rate, volume and not pressured; thought process is organized and goal directed; Thought content is on tx; denies HI/VH/AH. Patient reports suicidal ideation with no plan. Diagnostics Vital Signs (24Hr): Vital Signs - 24 hr 01/17/25 20:00 01/18/25 07:32 01/18/25 08:43 Temperature 98.4 F 98.0 F Pulse Rate 75 89 Respiratory Rate 16 16 Blood Pressure 110/60 144/84 H 144/84 H Pulse Oximetry 95 96 Oxygen Delivery Method Room Air Room Air 01/18/25 08:45 Temperature Pulse Rate 89 Respiratory Rate Blood Pressure 144/84 H Pulse Oximetry Oxygen Delivery Method BMI result Body Mass Index 40.0 Labs 01/14/25 16:01 01/17/25 08:04 Labs: Laboratory Results - last 48 hr 01/17/25 08:04 Sodium 135 Potassium 3.6 Chloride 97 Carbon Dioxide 28 Anion Gap 14 BUN 19 H Creatinine 1.07 Estim Creat Clear Calc 102.2 Estimated GFR > 60 Random Glucose 157 H Estimat Average Glucose 177 Hemoglobin A1c % 7.8 H Calcium 8.9 D Total Bilirubin 0.9 AST 157 H ALT 123 H Alkaline Phosphatase 58 Total Protein 7.3 Albumin 4.3 Triglycerides 386 H Cholesterol 166 LDL Cholesterol, Calc 41 HDL Cholesterol 48 Medications Medications Current Medications Acetaminophen (Acetaminophen 325 Mg Tablet) 650 mg PO Q6H PRN PRN Reason: Headache/Pain, Scale 1-10 Al Hydroxide/Mg Hydroxide (Magnesium Hydrox/Alum Hydrox 30 Ml Oral.Susp) 30 ml PO Q6H PRN PRN Reason: Heartburn/Nausea Aripiprazole (Aripiprazole 2 Mg Tablet) 2 mg PO BEDTIME [facility] Last Admin: 01/17/25 20:32 Dose: 2 mg Atenolol (Atenolol 25 Mg Tablet) 25 mg PO DAILY [facility] Last Admin: 01/18/25 08:45 Dose: 25 mg Atorvastatin Calcium (Atorvastatin Calcium 80 Mg Tablet) 80 mg PO DAILY [facility] Last Admin: 01/18/25 08:44 Dose: 80 mg Bupropion HCl (Bupropion Hcl Xl 150 Mg Tab.Er.24h) 150 mg PO DAILY [facility] Last Admin: 01/18/25 08:45 Dose: 150 mg Hydrochlorothiazide (Hydrochlorothiazide 25 Mg Tablet) 12.5 mg PO DAILY [facility] Last Admin: 01/18/25 08:43 Dose: 12.5 mg Hydroxyzine HCl (Hydroxyzine Hcl 25 Mg Tablet) 25 mg PO Q6H PRN PRN Reason: mild anxiety Last Admin: 01/17/25 16:13 Dose: 25 mg Lisinopril (Lisinopril 10 Mg Tablet) 10 mg PO DAILY [facility] Last Admin: 01/18/25 08:45 Dose: 10 mg Magnesium Hydroxide (Milk Of Magnesia 30 Ml Oral.Susp) 30 ml PO DAILY PRN PRN Reason: Constipation Metformin HCl (Metformin Hcl Er 500 Mg Tab.Er.24h) 500 mg PO DAILY [facility] Last Admin: 01/18/25 08:44 Dose: 500 mg Nicotine Polacrilex (Nicotine Polacrilex 2 Mg Gum) 4 mg BUCCAL Q2H PRN PRN Reason: Nicotine Cravings Ondansetron HCl (Ondansetron Odt 8 Mg Tab.Rapdis) 8 mg TRANSLINGU Q12H PRN PRN Reason: Nausea and Vomiting Phenobarbital (Phenobarbital 15 Mg Tablet) 15 mg PO BID [facility] Stop: 01/18/25 21:01 Last Admin: 01/18/25 08:45 Dose: 15 mg Phenobarbital (Phenobarbital 15 Mg Tablet) 15 mg PO DAILY [facility] Stop: 01/20/25 09:01 Tamsulosin HCl (Tamsulosin Hcl 0.4 Mg Capsule) 0.4 mg PO BEDTIME [facility] Last Admin: 01/17/25 20:33 Dose: 0.4 mg Thiamine HCl (Thiamine Hcl 100 Mg Tablet) 100 mg PO DAILY [facility] Last Admin: 01/18/25 08:44 Dose: 100 mg Trazodone HCl (Trazodone Hcl 50 Mg Tablet) 50 mg PO BEDTIME MRX1 PRN PRN Reason: Insomnia Allergies Allergies Allergy/AdvReac Type Severity Reaction Status Date / Time No Known Allergies Allergy Verified 01/14/25 15:32 Assessment & Plan Assessment & Plan (1) MDD (major depressive disorder), recurrent episode, moderate: Status: Acute Code(s): F33.1 - Major depressive disorder, recurrent, moderate (2) PTSD (post-traumatic stress disorder): Status: Acute Code(s): F43.10 - Post-traumatic stress disorder, unspecified (3) Alcohol use disorder: Status: Acute Code(s): F10.90 - Alcohol use, unspecified, uncomplicated Plan Patient is a 54-year-old male with history of MDD, PTSD, alcohol use disorder who self presented to ER due to suicidal ideation secondary to increased depression. Plan: CV 15 minute safety checks Continue home medications Start: Wellbutrin XL 150 mg PO daily Abilify 2 mg PO bedtime CIWA protocol-continue phenobarbital taper from ED Obtain collateral Encourage groups Consult to addiction medicine Referral to outpatient psychiatric providers Referral to substance abuse program Discharge planning 01/17: Showered. keeping to self. Depressed. Anxious. Patient reports passive suicidal ideation; pt stated, I'm tired of dealing with life . denies any plan or intent. Continue with phenobarbital taper and CIWA. Patient reports nausea; start: Zofran 8mg PO Q8HR PRN. per nursing, slept 7 hours. denies HI/VH/AH. Continue current tx plan. 01/18: Patient continues depressed and anxious; pt stated, I pray that I could and start all over again . Patient reports he has been keeping to himself and praying; pt requested to speak with clergy, nursing aware. Pt continues to report withdrawal symptoms but feels symptoms are decreasing. Continue with phenobarbital taper and CIWA. Plan to increase Wellbutrin dose on Thursday. Patient has phone screen today with substance abuse program. Patient educated on: diagnosis, medication risk/benefits, substance abuse and therapeutic strategies Reason for continued inpatient stay Substantial Risk for: harm to self and med/psych decompensation Time Spent With Patient Time: Total time managing care of this patient today _20___ minutes.
[2025-01-18] MEDS: hydrOXYzine HCL 25 MG TABLET PO (10:47)
[2025-01-18 19:20] VITALS: BP 131/76; PULSE 85; RESP 16; TEMP 37.3; O2SAT 97
[2025-01-18] MEDS: ARIPiprazole 2 MG TABLET PO (21:11)
[2025-01-18] MEDS: Tamsulosin HCL 0.4 MG CAPSULE PO (21:11)
[2025-01-19 07:00] VITALS: BMI 40.1
[2025-01-19 07:35] VITALS: BP 156/84; PULSE 87; RESP 14; TEMP 36.9; O2SAT 95
[2025-01-19 08:33] VITALS: BP 156/84
[2025-01-19] MEDS: hydroCHLOROthiazide 25 MG TABLET 12.5 MG PO (08:33)
[2025-01-19 08:34] VITALS: BP 156/84
[2025-01-19] MEDS: lisinopriL 10 MG TABLET PO (08:34)
[2025-01-19] MEDS: buPROPion HCl XL 150 MG TAB.ER.24H PO (08:34)
[2025-01-19] MEDS: Thiamine HCL 100 MG TABLET PO (08:34)
[2025-01-19 08:35] VITALS: BP 156/84; PULSE 87
[2025-01-19] MEDS: Atorvastatin Calcium 80 MG TABLET PO (08:35)
[2025-01-19] MEDS: atenoloL 25 MG TABLET PO (08:35)
[2025-01-19] MEDS: metFORMIN HCl ER 500 MG TAB.ER.24H PO (08:35)
[2025-01-19] MEDS: PHENobarbitaL 15 MG TABLET PO (08:35)
[2025-01-19] MEDS: hydrOXYzine HCL 25 MG TABLET PO (08:40)
--- NOTE | 2025-01-19 09:18 | P.PNPSI_ITS ---
Subjective Subjective Date of Service: 01/19/25 Reason For Visit: Crisis Subjective Notes: Conditional Voluntary Interim History: Active on unit, attending groups. social with peers. Patient continues depressed and anxious; pt stated, I'm feeling more hopeful knowing that I'm going to a program after here . Pt reports feeling nervous about his mother and girlfriend visiting this afternoon. Wellbutrin increased to 300mg PO daily. Pt reports interest in starting Naltrexone; risks/benefits reviewed. Start: Naltrexone 50mg PO daily. Medication Compliance: Yes Side effects from medications: No Attending Groups: Yes Mental Status Exam Mental Status Exam Narrative: Pt is alert and oriented; behavior is cooperative and calm; dressed in casual attire; mood is described as anxious and depressed ; eye contact appropriate; Speech is normal rate, volume and not pressured; thought process is organized and goal directed; Thought content is on tx; denies SI/HI/VH/AH. Diagnostics Vital Signs (24Hr): Vital Signs - 24 hr 01/18/25 19:20 01/19/25 07:35 01/19/25 08:33 Temperature 99.1 F 98.5 F Pulse Rate 85 87 Respiratory Rate 16 14 Blood Pressure 131/76 156/84 H 156/84 H Pulse Oximetry 97 95 Oxygen Delivery Method Room Air Room Air 01/19/25 08:34 01/19/25 08:35 Temperature Pulse Rate 87 Respiratory Rate Blood Pressure 156/84 H 156/84 H Pulse Oximetry Oxygen Delivery Method BMI result Body Mass Index 40.0 Labs 01/14/25 16:01 01/17/25 08:04 Medications Medications Current Medications Acetaminophen (Acetaminophen 325 Mg Tablet) 650 mg PO Q6H PRN PRN Reason: Headache/Pain, Scale 1-10 Al Hydroxide/Mg Hydroxide (Magnesium Hydrox/Alum Hydrox 30 Ml Oral.Susp) 30 ml PO Q6H PRN PRN Reason: Heartburn/Nausea Aripiprazole (Aripiprazole 2 Mg Tablet) 2 mg PO BEDTIME [facility] Last Admin: 01/18/25 21:11 Dose: 2 mg Atenolol (Atenolol 25 Mg Tablet) 25 mg PO DAILY [facility] Last Admin: 01/19/25 08:35 Dose: 25 mg Atorvastatin Calcium (Atorvastatin Calcium 80 Mg Tablet) 80 mg PO DAILY [facility] Last Admin: 01/19/25 08:35 Dose: 80 mg Bupropion HCl (Bupropion Hcl Xl 150 Mg Tab.Er.24h) 150 mg PO DAILY [facility] Last Admin: 01/19/25 08:34 Dose: 150 mg Hydrochlorothiazide (Hydrochlorothiazide 25 Mg Tablet) 12.5 mg PO DAILY [facility] Last Admin: 01/19/25 08:33 Dose: 12.5 mg Hydroxyzine HCl (Hydroxyzine Hcl 25 Mg Tablet) 25 mg PO Q6H PRN PRN Reason: mild anxiety Last Admin: 01/19/25 08:40 Dose: 25 mg Lisinopril (Lisinopril 10 Mg Tablet) 10 mg PO DAILY [facility] Last Admin: 01/19/25 08:34 Dose: 10 mg Magnesium Hydroxide (Milk Of Magnesia 30 Ml Oral.Susp) 30 ml PO DAILY PRN PRN Reason: Constipation Metformin HCl (Metformin Hcl Er 500 Mg Tab.Er.24h) 500 mg PO DAILY [facility] Last Admin: 01/19/25 08:35 Dose: 500 mg Nicotine Polacrilex (Nicotine Polacrilex 2 Mg Gum) 4 mg BUCCAL Q2H PRN PRN Reason: Nicotine Cravings Ondansetron HCl (Ondansetron Odt 8 Mg Tab.Rapdis) 8 mg TRANSLINGU Q12H PRN PRN Reason: Nausea and Vomiting Phenobarbital (Phenobarbital 15 Mg Tablet) 15 mg PO DAILY [facility] Stop: 01/20/25 09:01 Last Admin: 01/19/25 08:35 Dose: 15 mg Tamsulosin HCl (Tamsulosin Hcl 0.4 Mg Capsule) 0.4 mg PO BEDTIME [facility] Last Admin: 01/18/25 21:11 Dose: 0.4 mg Thiamine HCl (Thiamine Hcl 100 Mg Tablet) 100 mg PO DAILY [facility] Last Admin: 01/19/25 08:34 Dose: 100 mg Trazodone HCl (Trazodone Hcl 50 Mg Tablet) 50 mg PO BEDTIME MRX1 PRN PRN Reason: Insomnia Allergies Allergies Allergy/AdvReac Type Severity Reaction Status Date / Time No Known Allergies Allergy Verified 01/14/25 15:32 Assessment & Plan Assessment & Plan (1) MDD (major depressive disorder), recurrent episode, moderate: Status: Acute Code(s): F33.1 - Major depressive disorder, recurrent, moderate (2) PTSD (post-traumatic stress disorder): Status: Acute Code(s): F43.10 - Post-traumatic stress disorder, unspecified (3) Alcohol use disorder: Status: Acute Code(s): F10.90 - Alcohol use, unspecified, uncomplicated Plan Patient is a 54-year-old male with history of MDD, PTSD, alcohol use disorder who self presented to ER due to suicidal ideation secondary to increased depression. Plan: CV 15 minute safety checks Continue home medications Start: Wellbutrin XL 150 mg PO daily Abilify 2 mg PO bedtime CIWA protocol-continue phenobarbital taper from ED Obtain collateral Encourage groups Consult to addiction medicine Referral to outpatient psychiatric providers Referral to substance abuse program Discharge planning 01/17: Showered. keeping to self. Depressed. Anxious. Patient reports passive suicidal ideation; pt stated, I'm tired of dealing with life . denies any plan or intent. Continue with phenobarbital taper and CIWA. Patient reports nausea; start: Zofran 8mg PO Q8HR PRN. per nursing, slept 7 hours. denies HI/VH/AH. Continue current tx plan. 01/18: Patient continues depressed and anxious; pt stated, I pray that I could and start all over again . Patient reports he has been keeping to himself and praying; pt requested to speak with clergy, nursing aware. Pt continues to report withdrawal symptoms but feels symptoms are decreasing. Continue with phenobarbital taper and CIWA. Plan to increase Wellbutrin dose on Thursday. Patient has phone screen today with substance abuse program. 01/19: Active on unit, attending groups. social with peers. Patient continues depressed and anxious; pt stated, I'm feeling more hopeful knowing that I'm going to a program after here . Pt reports feeling nervous about his mother and girlfriend visiting this afternoon. Wellbutrin increased to 300mg PO daily. Pt reports interest in starting Naltrexone; risks/benefits reviewed. Start: Naltrexone 50mg PO daily. Patient educated on: diagnosis, medication risk/benefits and therapeutic strategies Reason for continued inpatient stay Substantial Risk for: med/psych decompensation Time Spent With Patient Time: Total time managing care of this patient today _20___ minutes.
--- NOTE | 2025-01-19 11:10 | MHC.RECOVRN ---
AUDIT-C Brief Intervention Pt had positive screen for unhealthy alcohol use on admission, subsequently met with t/w to discuss alcohol use and recovery supports/options. This copywriter met with patient to discuss current alcohol use and concerns related to increased risk of alcohol related problems.? Pt reports 20 nips [place]ag liqueur daily x a few days [employer], prior to that has been drinking 12-14 nips daily since 2009 . Discussed how alcohol use has impacted health, including negative impact on mental health. Pt reports stresses that influence alcohol use include sister with cancer, taking care of mom, and work. Withdrawal History: denies history of withdrawal seizures Treatment History: 2010 [facility] (3.5 months in recovery, longest time in recovery), one [facility] admission, one [facility] admission during COVID Supports:?girlfriend, mom Discussed risk reduction strategies including drinking below the recommended limit. Provided pt with written resources including information on inpatient and outpatient treatment, TIO, harm reduction, and recovery coaching. Pt interested in TIO initiation, unsure if he has tried it in the past. Pt plans to initiate TIO and follow up with outpatient providers. Pt provided with t/w contact information if questions or concerns arise. Denies other questions or concerns at this time.? Discussed with Jacinta Art APRN.
[2025-01-19 19:35] VITALS: BP 113/84; PULSE 96; RESP 18; TEMP 36.9; O2SAT 96
[2025-01-19] MEDS: ARIPiprazole 2 MG TABLET PO (21:12)
[2025-01-19] MEDS: Tamsulosin HCL 0.4 MG CAPSULE PO (21:12)
[2025-01-20 07:10] VITALS: BP 139/92; PULSE 85; RESP 16; TEMP 36.9; O2SAT 97
[2025-01-20] MEDS: hydrOXYzine HCL 25 MG TABLET PO ×2 (08:43→15:57)
[2025-01-20 08:44] VITALS: BP 139/92; PULSE 85
[2025-01-20] MEDS: Thiamine HCL 100 MG TABLET PO (08:44)
[2025-01-20] MEDS: buPROPion HCl XL 300 MG TAB.ER.24H PO (08:44)
[2025-01-20] MEDS: Naltrexone HCl 50 MG TABLET PO (08:44)
[2025-01-20] MEDS: lisinopriL 20 MG TABLET PO (08:44)
[2025-01-20] MEDS: PHENobarbitaL 15 MG TABLET PO (08:44)
[2025-01-20] MEDS: atenoloL 25 MG TABLET PO (08:44)
[2025-01-20] MEDS: hydroCHLOROthiazide 25 MG TABLET 12.5 MG PO (08:44)
[2025-01-20] MEDS: Atorvastatin Calcium 80 MG TABLET PO (08:45)
[2025-01-20] MEDS: metFORMIN HCl ER 500 MG TAB.ER.24H PO (08:45)
--- NOTE | 2025-01-20 14:15 | P.PNPSI_ITS ---
Subjective Subjective Date of Service: 01/20/25 Reason For Visit: Crisis Subjective Notes: Conditional Voluntary Interim History: Active on unit, attending groups. social with peers. Patient reports feeling improved today. he denies any withdrawal symptoms; phenobarbital taper complete. [facility]ST[facility] CALL[facility]. per nursing, slept 7 hours last night. Plan to go to substance abuse program on Thursday; pt reports he is looking forward to it. denies SI/HI/VH/AH. Medication Compliance: Yes Side effects from medications: No Attending Groups: Yes Mental Status Exam Mental Status Exam Narrative: Pt is alert and oriented; behavior is cooperative and calm; dressed in casual attire; mood is described as better ; eye contact appropriate; Speech is normal rate, volume and not pressured; thought process is organized and goal directed; Thought content is on tx; denies SI/HI/VH/AH. Diagnostics Vital Signs (24Hr): Vital Signs - 24 hr 01/19/25 19:35 01/20/25 07:10 01/20/25 08:44 Temperature 98.4 F 98.4 F Pulse Rate 96 85 Respiratory Rate 18 16 Blood Pressure 113/84 139/92 H 139/92 H Pulse Oximetry 96 97 Oxygen Delivery Method Room Air Room Air 01/20/25 08:44 01/20/25 08:44 Temperature Pulse Rate 85 Respiratory Rate Blood Pressure 139/92 H 139/92 H Pulse Oximetry Oxygen Delivery Method BMI result Body Mass Index 40.1 Labs 01/14/25 16:01 01/17/25 08:04 Medications Medications Current Medications Acetaminophen (Acetaminophen 325 Mg Tablet) 650 mg PO Q6H PRN PRN Reason: Headache/Pain, Scale 1-10 Al Hydroxide/Mg Hydroxide (Magnesium Hydrox/Alum Hydrox 30 Ml Oral.Susp) 30 ml PO Q6H PRN PRN Reason: Heartburn/Nausea Aripiprazole (Aripiprazole 2 Mg Tablet) 2 mg PO BEDTIME [facility] Last Admin: 01/19/25 21:12 Dose: 2 mg Atenolol (Atenolol 25 Mg Tablet) 25 mg PO DAILY [facility] Last Admin: 01/20/25 08:44 Dose: 25 mg Atorvastatin Calcium (Atorvastatin Calcium 80 Mg Tablet) 80 mg PO DAILY [facility] Last Admin: 01/20/25 08:45 Dose: 80 mg Bupropion HCl (Bupropion Hcl Xl 300 Mg Tab.Er.24h) 300 mg PO DAILY [facility] Last Admin: 01/20/25 08:44 Dose: 300 mg Hydrochlorothiazide (Hydrochlorothiazide 25 Mg Tablet) 12.5 mg PO DAILY [facility] Last Admin: 01/20/25 08:44 Dose: 12.5 mg Hydroxyzine HCl (Hydroxyzine Hcl 25 Mg Tablet) 25 mg PO Q6H PRN PRN Reason: mild anxiety Last Admin: 01/20/25 08:43 Dose: 25 mg Lisinopril (Lisinopril 20 Mg Tablet) 20 mg PO DAILY [facility] Last Admin: 01/20/25 08:44 Dose: 20 mg Magnesium Hydroxide (Milk Of Magnesia 30 Ml Oral.Susp) 30 ml PO DAILY PRN PRN Reason: Constipation Metformin HCl (Metformin Hcl Er 500 Mg Tab.Er.24h) 500 mg PO DAILY [facility] Last Admin: 01/20/25 08:45 Dose: 500 mg Naltrexone HCl (Naltrexone Hcl 50 Mg Tablet) 50 mg PO DAILY [facility] Last Admin: 01/20/25 08:44 Dose: 50 mg Nicotine Polacrilex (Nicotine Polacrilex 2 Mg Gum) 4 mg BUCCAL Q2H PRN PRN Reason: Nicotine Cravings Ondansetron HCl (Ondansetron Odt 8 Mg Tab.Rapdis) 8 mg TRANSLINGU Q12H PRN PRN Reason: Nausea and Vomiting Tamsulosin HCl (Tamsulosin Hcl 0.4 Mg Capsule) 0.4 mg PO BEDTIME [facility] Last Admin: 01/19/25 21:12 Dose: 0.4 mg Thiamine HCl (Thiamine Hcl 100 Mg Tablet) 100 mg PO DAILY [facility] Last Admin: 01/20/25 08:44 Dose: 100 mg Trazodone HCl (Trazodone Hcl 50 Mg Tablet) 50 mg PO BEDTIME MRX1 PRN PRN Reason: Insomnia Allergies Allergies Allergy/AdvReac Type Severity Reaction Status Date / Time No Known Allergies Allergy Verified 01/14/25 15:32 Assessment & Plan Assessment & Plan (1) MDD (major depressive disorder), recurrent episode, moderate: Status: Acute Code(s): F33.1 - Major depressive disorder, recurrent, moderate (2) PTSD (post-traumatic stress disorder): Status: Acute Code(s): F43.10 - Post-traumatic stress disorder, unspecified (3) Alcohol use disorder: Status: Acute Code(s): F10.90 - Alcohol use, unspecified, uncomplicated Plan Patient is a 54-year-old male with history of MDD, PTSD, alcohol use disorder who self presented to ER due to suicidal ideation secondary to increased depression. Plan: CV 15 minute safety checks Continue home medications Start: Wellbutrin XL 150 mg PO daily Abilify 2 mg PO bedtime CIWA protocol-continue phenobarbital taper from ED Obtain collateral Encourage groups Consult to addiction medicine Referral to outpatient psychiatric providers Referral to substance abuse program Discharge planning 01/17: Showered. keeping to self. Depressed. Anxious. Patient reports passive suicidal ideation; pt stated, I'm tired of dealing with life . denies any plan or intent. Continue with phenobarbital taper and CIWA. Patient reports nausea; start: Zofran 8mg PO Q8HR PRN. per nursing, slept 7 hours. denies HI/VH/AH. Continue current tx plan. 01/18: Patient continues depressed and anxious; pt stated, I pray that I could and start all over again . Patient reports he has been keeping to himself and praying; pt requested to speak with clergy, nursing aware. Pt continues to report withdrawal symptoms but feels symptoms are decreasing. Continue with phenobarbital taper and CIWA. Plan to increase Wellbutrin dose on Thursday. Patient has phone screen today with substance abuse program. 01/19: Active on unit, attending groups. social with peers. Patient continues depressed and anxious; pt stated, I'm feeling more hopeful knowing that I'm going to a program after here . Pt reports feeling nervous about his mother and girlfriend visiting this afternoon. Wellbutrin increased to 300mg PO daily. Pt reports interest in starting Naltrexone; risks/benefits reviewed. Start: Naltrexone 50mg PO daily. 01/20: Patient reports feeling improved today. he denies any withdrawal symptoms; phenobarbital taper complete. DC CIWA. per nursing, slept 7 hours last night. Plan to go to substance abuse program on Thursday; pt reports he is looking forward to it. denies SI/HI/VH/AH. Continue current tx plan Patient educated on: diagnosis, medication risk/benefits and therapeutic strategies Reason for continued inpatient stay Substantial Risk for: med/psych decompensation Time Spent With Patient Time: Total time managing care of this patient today _20___ minutes.
[2025-01-20] MEDS: QUEtiapine Fumarate 50 MG TABLET PO ×2 (17:54→23:03)
[2025-01-20 20:00] VITALS: BP 126/60; PULSE 83; RESP 16; TEMP 36.9; O2SAT 98
[2025-01-20] MEDS: Tamsulosin HCL 0.4 MG CAPSULE PO (22:55)
[2025-01-20] MEDS: ARIPiprazole 2 MG TABLET PO (22:56)
--- NOTE | 2025-01-20 23:27 | PC.NURSE ---
allowed for CIWA assessment at this time. requesting not be woken for CIWA throughout the night.
[2025-01-21 02:36] VITALS: RESP 18
[2025-01-21] MEDS: hydrOXYzine HCL 25 MG TABLET PO ×2 (05:14→16:07)
[2025-01-21 07:10] VITALS: BP 130/78; PULSE 82; RESP 16; TEMP 36.9; O2SAT 97
[2025-01-21] MEDS: atenoloL 25 MG TABLET PO (08:40)
[2025-01-21] MEDS: Naltrexone HCl 50 MG TABLET PO (08:40)
[2025-01-21] MEDS: Atorvastatin Calcium 80 MG TABLET PO (08:40)
[2025-01-21] MEDS: buPROPion HCl XL 300 MG TAB.ER.24H PO (08:40)
[2025-01-21] MEDS: Thiamine HCL 100 MG TABLET PO (08:40)
[2025-01-21] MEDS: lisinopriL 20 MG TABLET PO (08:40)
[2025-01-21] MEDS: metFORMIN HCl ER 500 MG TAB.ER.24H PO (08:40)
[2025-01-21] MEDS: hydroCHLOROthiazide 25 MG TABLET 12.5 MG PO (08:41)
[2025-01-21 08:43] LABS: Creatinine Clr Calc Pharmacy 88.2; Estimated Glomerular Filt Rate > 60
--- NOTE | 2025-01-21 18:40 | HO.PSYCHPN ---
Subjective Subjective Date of Service: 01/21/25 Reason For Visit: Crisis Interim History: c/o alcohol dreams last night. anxious re landlord looking to speak with him. otherwise no issues, looking forward to [facility] program. per staff, scoring ones on CIWA. phenobarb taper completed. slept 7.5 hours, vivid dreams. Mental Status Exam Mental Status Exam Narrative: Pt is alert and oriented; behavior is cooperative and calm; dressed in casual attire; mood is described as anxious; eye contact appropriate; Speech is normal rate, volume and not pressured; thought process is organized and goal directed; Thought content is on tx; denies SI/HI/VH/AH. Diagnostics Vital Signs (24Hr): Vital Signs - 24 hr 01/20/25 20:00 01/21/25 07:10 Temperature 98.5 F 98.4 F Pulse Rate 83 82 Respiratory Rate 16 16 Blood Pressure 126/60 130/78 Pulse Oximetry 98 97 Oxygen Delivery Method Room Air BMI result Body Mass Index 40.1 Labs 01/14/25 16:01 01/21/25 08:13 Labs: Laboratory Results - last 48 hr 01/21/25 08:13 Creatinine 1.24 Estim Creat Clear Calc 88.2 Estimated GFR > 60 Medications Medications Current Medications Acetaminophen (Acetaminophen 325 Mg Tablet) 650 mg PO Q6H PRN PRN Reason: Headache/Pain, Scale 1-10 Al Hydroxide/Mg Hydroxide (Magnesium Hydrox/Alum Hydrox 30 Ml Oral.Susp) 30 ml PO Q6H PRN PRN Reason: Heartburn/Nausea Aripiprazole (Aripiprazole 2 Mg Tablet) 2 mg PO BEDTIME [facility] Last Admin: 01/20/25 22:56 Dose: 2 mg Atenolol (Atenolol 25 Mg Tablet) 25 mg PO DAILY [facility] Last Admin: 01/21/25 08:40 Dose: 25 mg Atorvastatin Calcium (Atorvastatin Calcium 80 Mg Tablet) 80 mg PO DAILY [facility] Last Admin: 01/21/25 08:40 Dose: 80 mg Bupropion HCl (Bupropion Hcl Xl 300 Mg Tab.Er.24h) 300 mg PO DAILY [facility] Last Admin: 01/21/25 08:40 Dose: 300 mg Hydrochlorothiazide (Hydrochlorothiazide 25 Mg Tablet) 12.5 mg PO DAILY [facility] Last Admin: 01/21/25 08:41 Dose: 12.5 mg Hydroxyzine HCl (Hydroxyzine Hcl 25 Mg Tablet) 25 mg PO Q6H PRN PRN Reason: mild anxiety Last Admin: 01/21/25 16:07 Dose: 25 mg Lisinopril (Lisinopril 20 Mg Tablet) 20 mg PO DAILY [facility] Last Admin: 01/21/25 08:40 Dose: 20 mg Magnesium Hydroxide (Milk Of Magnesia 30 Ml Oral.Susp) 30 ml PO DAILY PRN PRN Reason: Constipation Metformin HCl (Metformin Hcl Er 500 Mg Tab.Er.24h) 500 mg PO DAILY [facility] Last Admin: 01/21/25 08:40 Dose: 500 mg Naltrexone HCl (Naltrexone Hcl 50 Mg Tablet) 50 mg PO DAILY [facility] Last Admin: 01/21/25 08:40 Dose: 50 mg Nicotine Polacrilex (Nicotine Polacrilex 2 Mg Gum) 4 mg BUCCAL Q2H PRN PRN Reason: Nicotine Cravings Ondansetron HCl (Ondansetron Odt 8 Mg Tab.Rapdis) 8 mg TRANSLINGU Q12H PRN PRN Reason: Nausea and Vomiting Quetiapine Fumarate (Quetiapine Fumarate 50 Mg Tablet) 50 mg PO Q4H PRN PRN Reason: severe anxiety Last Admin: 01/20/25 23:03 Dose: 50 mg Tamsulosin HCl (Tamsulosin Hcl 0.4 Mg Capsule) 0.4 mg PO BEDTIME [facility] Last Admin: 01/20/25 22:55 Dose: 0.4 mg Thiamine HCl (Thiamine Hcl 100 Mg Tablet) 100 mg PO DAILY [facility] Last Admin: 01/21/25 08:40 Dose: 100 mg Trazodone HCl (Trazodone Hcl 50 Mg Tablet) 50 mg PO BEDTIME MRX1 PRN PRN Reason: Insomnia Allergies Allergies Allergy/AdvReac Type Severity Reaction Status Date / Time No Known Allergies Allergy Verified 01/14/25 15:32 Assessment & Plan Assessment & Plan (1) MDD (major depressive disorder), recurrent episode, moderate: Status: Acute Code(s): F33.1 - Major depressive disorder, recurrent, moderate (2) PTSD (post-traumatic stress disorder): Status: Acute Code(s): F43.10 - Post-traumatic stress disorder, unspecified (3) Alcohol use disorder: Status: Acute Code(s): F10.90 - Alcohol use, unspecified, uncomplicated Plan Patient is a 54-year-old male with history of MDD, PTSD, alcohol use disorder who self presented to ER due to suicidal ideation secondary to increased depression. Plan: CV 15 minute safety checks Continue home medications Start: Wellbutrin XL 150 mg PO daily Abilify 2 mg PO bedtime CIWA protocol-continue phenobarbital taper from ED Obtain collateral Encourage groups Consult to addiction medicine Referral to outpatient psychiatric providers Referral to substance abuse program Discharge planning 01/17: Showered. keeping to self. Depressed. Anxious. Patient reports passive suicidal ideation; pt stated, I'm tired of dealing with life . denies any plan or intent. Continue with phenobarbital taper and CIWA. Patient reports nausea; start: Zofran 8mg PO Q8HR PRN. per nursing, slept 7 hours. denies HI/VH/AH. Continue current tx plan. 01/18: Patient continues depressed and anxious; pt stated, I pray that I could and start all over again . Patient reports he has been keeping to himself and praying; pt requested to speak with clergy, nursing aware. Pt continues to report withdrawal symptoms but feels symptoms are decreasing. Continue with phenobarbital taper and CIWA. Plan to increase Wellbutrin dose on Thursday. Patient has phone screen today with substance abuse program. 01/19: Active on unit, attending groups. social with peers. Patient continues depressed and anxious; pt stated, I'm feeling more hopeful knowing that I'm going to a program after here . Pt reports feeling nervous about his mother and girlfriend visiting this afternoon. Wellbutrin increased to 300mg PO daily. Pt reports interest in starting Naltrexone; risks/benefits reviewed. Start: Naltrexone 50mg PO daily. 01/20: Patient reports feeling improved today. he denies any withdrawal symptoms; phenobarbital taper complete. DC CIWA. per nursing, slept 7 hours last night. Plan to go to substance abuse program on Thursday; pt reports he is looking forward to it. denies SI/HI/VH/AH. Continue current tx plan. 01/21: anxious re landlord's looking to speak with him. alcohol dreams last night. looking forward to [facility]. Reason for continued inpatient stay Substantial Risk for: inability to function and rapid decompensation Time Spent With Patient Time: Total time managing care of this patient today ____ minutes.
[2025-01-21 20:00] VITALS: BP 117/62; PULSE 91; RESP 18; TEMP 37.4; O2SAT 97
[2025-01-21] MEDS: QUEtiapine Fumarate 50 MG TABLET PO (22:48)
[2025-01-21] MEDS: ARIPiprazole 2 MG TABLET PO (22:48)
[2025-01-21] MEDS: Tamsulosin HCL 0.4 MG CAPSULE PO (22:48)
[2025-01-21 23:00] VITALS: TEMP 37
[2025-01-22] MEDS: hydrOXYzine HCL 25 MG TABLET PO ×2 (03:45→17:01)
[2025-01-22] MEDS: QUEtiapine Fumarate 50 MG TABLET PO ×3 (03:45→20:08)
[2025-01-22 08:07] VITALS: BP 139/79; PULSE 89; RESP 16; TEMP 36.6; O2SAT 96
[2025-01-22] MEDS: buPROPion HCl XL 300 MG TAB.ER.24H PO (08:39)
[2025-01-22] MEDS: Atorvastatin Calcium 80 MG TABLET PO (08:39)
[2025-01-22] MEDS: metFORMIN HCl ER 500 MG TAB.ER.24H PO (08:39)
[2025-01-22] MEDS: Thiamine HCL 100 MG TABLET PO (08:39)
[2025-01-22] MEDS: atenoloL 25 MG TABLET PO (08:39)
[2025-01-22] MEDS: Naltrexone HCl 50 MG TABLET PO (08:39)
[2025-01-22] MEDS: lisinopriL 20 MG TABLET PO (08:39)
[2025-01-22] MEDS: hydroCHLOROthiazide 25 MG TABLET 12.5 MG PO (08:40)
--- NOTE | 2025-01-22 14:50 | HO.PSYCHPN ---
Subjective Subjective Date of Service: 01/22/25 Reason For Visit: Crisis Interim History: c/o snoring roommate, only slept several hours. per staff, appeared to have slept 7 hours. used own CPAP last NOC. afraid of relapse after discharge. Mental Status Exam Mental Status Exam Narrative: Pt is alert and oriented; behavior is cooperative and calm; dressed in casual attire; mood is described as anxious; eye contact appropriate; Speech is normal rate, volume and not pressured; thought process is organized and goal directed; Thought content is on tx; denies SI/HI/VH/AH. Diagnostics Vital Signs (24Hr): Vital Signs - 24 hr 01/21/25 20:00 01/21/25 23:00 01/22/25 08:07 Temperature 99.3 F 98.6 F 97.8 F Pulse Rate 91 89 Respiratory Rate 18 16 Blood Pressure 117/62 139/79 Pulse Oximetry 97 96 Oxygen Delivery Method Room Air Room Air BMI result Body Mass Index 40.1 Labs 01/14/25 16:01 01/21/25 08:13 Labs: Laboratory Results - last 48 hr 01/21/25 08:13 Creatinine 1.24 Estim Creat Clear Calc 88.2 Estimated GFR > 60 Medications Medications Current Medications Acetaminophen (Acetaminophen 325 Mg Tablet) 650 mg PO Q6H PRN PRN Reason: Headache/Pain, Scale 1-10 Al Hydroxide/Mg Hydroxide (Magnesium Hydrox/Alum Hydrox 30 Ml Oral.Susp) 30 ml PO Q6H PRN PRN Reason: Heartburn/Nausea Aripiprazole (Aripiprazole 2 Mg Tablet) 2 mg PO BEDTIME [facility] Last Admin: 01/21/25 22:48 Dose: 2 mg Atenolol (Atenolol 25 Mg Tablet) 25 mg PO DAILY [facility] Last Admin: 01/22/25 08:39 Dose: 25 mg Atorvastatin Calcium (Atorvastatin Calcium 80 Mg Tablet) 80 mg PO DAILY [facility] Last Admin: 01/22/25 08:39 Dose: 80 mg Bupropion HCl (Bupropion Hcl Xl 300 Mg Tab.Er.24h) 300 mg PO DAILY [facility] Last Admin: 01/22/25 08:39 Dose: 300 mg Hydrochlorothiazide (Hydrochlorothiazide 25 Mg Tablet) 12.5 mg PO DAILY [facility] Last Admin: 01/22/25 08:40 Dose: 12.5 mg Hydroxyzine HCl (Hydroxyzine Hcl 25 Mg Tablet) 25 mg PO Q6H PRN PRN Reason: mild anxiety Last Admin: 01/22/25 03:45 Dose: 25 mg Lisinopril (Lisinopril 20 Mg Tablet) 20 mg PO DAILY [facility] Last Admin: 01/22/25 08:39 Dose: 20 mg Magnesium Hydroxide (Milk Of Magnesia 30 Ml Oral.Susp) 30 ml PO DAILY PRN PRN Reason: Constipation Metformin HCl (Metformin Hcl Er 500 Mg Tab.Er.24h) 500 mg PO DAILY [facility] Last Admin: 01/22/25 08:39 Dose: 500 mg Naltrexone HCl (Naltrexone Hcl 50 Mg Tablet) 50 mg PO DAILY [facility] Last Admin: 01/22/25 08:39 Dose: 50 mg Nicotine Polacrilex (Nicotine Polacrilex 2 Mg Gum) 4 mg BUCCAL Q2H PRN PRN Reason: Nicotine Cravings Ondansetron HCl (Ondansetron Odt 8 Mg Tab.Rapdis) 8 mg TRANSLINGU Q12H PRN PRN Reason: Nausea and Vomiting Quetiapine Fumarate (Quetiapine Fumarate 50 Mg Tablet) 50 mg PO Q4H PRN PRN Reason: severe anxiety Last Admin: 01/22/25 10:30 Dose: 50 mg Tamsulosin HCl (Tamsulosin Hcl 0.4 Mg Capsule) 0.4 mg PO BEDTIME [facility] Last Admin: 01/21/25 22:48 Dose: 0.4 mg Thiamine HCl (Thiamine Hcl 100 Mg Tablet) 100 mg PO DAILY [facility] Last Admin: 01/22/25 08:39 Dose: 100 mg Trazodone HCl (Trazodone Hcl 50 Mg Tablet) 50 mg PO BEDTIME MRX1 PRN PRN Reason: Insomnia Allergies Allergies Allergy/AdvReac Type Severity Reaction Status Date / Time No Known Allergies Allergy Verified 01/14/25 15:32 Assessment & Plan Assessment & Plan (1) MDD (major depressive disorder), recurrent episode, moderate: Status: Acute Code(s): F33.1 - Major depressive disorder, recurrent, moderate (2) PTSD (post-traumatic stress disorder): Status: Acute Code(s): F43.10 - Post-traumatic stress disorder, unspecified (3) Alcohol use disorder: Status: Acute Code(s): F10.90 - Alcohol use, unspecified, uncomplicated Plan Patient is a 54-year-old male with history of MDD, PTSD, alcohol use disorder who self presented to ER due to suicidal ideation secondary to increased depression. Plan: CV 15 minute safety checks Continue home medications Start: Wellbutrin XL 150 mg PO daily Abilify 2 mg PO bedtime CIWA protocol-continue phenobarbital taper from ED Obtain collateral Encourage groups Consult to addiction medicine Referral to outpatient psychiatric providers Referral to substance abuse program Discharge planning 01/17: Showered. keeping to self. Depressed. Anxious. Patient reports passive suicidal ideation; pt stated, I'm tired of dealing with life . denies any plan or intent. Continue with phenobarbital taper and CIWA. Patient reports nausea; start: Zofran 8mg PO Q8HR PRN. per nursing, slept 7 hours. denies HI/VH/AH. Continue current tx plan. 01/18: Patient continues depressed and anxious; pt stated, I pray that I could and start all over again . Patient reports he has been keeping to himself and praying; pt requested to speak with clergy, nursing aware. Pt continues to report withdrawal symptoms but feels symptoms are decreasing. Continue with phenobarbital taper and CIWA. Plan to increase Wellbutrin dose on Thursday. Patient has phone screen today with substance abuse program. 01/19: Active on unit, attending groups. social with peers. Patient continues depressed and anxious; pt stated, I'm feeling more hopeful knowing that I'm going to a program after here . Pt reports feeling nervous about his mother and girlfriend visiting this afternoon. Wellbutrin increased to 300mg PO daily. Pt reports interest in starting Naltrexone; risks/benefits reviewed. Start: Naltrexone 50mg PO daily. 01/20: Patient reports feeling improved today. he denies any withdrawal symptoms; phenobarbital taper complete. DC CIWA. per nursing, slept 7 hours last night. Plan to go to substance abuse program on Thursday; pt reports he is looking forward to it. denies SI/HI/VH/AH. Continue current tx plan. 01/21: anxious re landlord's looking to speak with him. alcohol dreams last night. looking forward to [facility]. 01/22: stable presentation. anxious about post-DC relapse. continue current mgmt. Reason for continued inpatient stay Substantial Risk for: inability to function and rapid decompensation Time Spent With Patient Time: Total time managing care of this patient today ____ minutes.
[2025-01-22 20:00] VITALS: BP 143/82; PULSE 77; RESP 18; TEMP 36.9; O2SAT 97
[2025-01-22] MEDS: Tamsulosin HCL 0.4 MG CAPSULE PO (22:18)
[2025-01-22] MEDS: ARIPiprazole 2 MG TABLET PO (22:18)
[2025-01-23] MEDS: QUEtiapine Fumarate 50 MG TABLET PO ×5 (01:51→19:57)
[2025-01-23] MEDS: hydrOXYzine HCL 25 MG TABLET PO (01:51)
[2025-01-23 07:35] VITALS: BP 139/63; PULSE 90; RESP 16; TEMP 36.9; O2SAT 95
[2025-01-23] MEDS: buPROPion HCl XL 300 MG TAB.ER.24H PO (08:30)
[2025-01-23] MEDS: lisinopriL 20 MG TABLET PO (08:30)
[2025-01-23] MEDS: hydroCHLOROthiazide 25 MG TABLET 12.5 MG PO (08:30)
[2025-01-23] MEDS: atenoloL 25 MG TABLET PO (08:30)
[2025-01-23] MEDS: metFORMIN HCl ER 500 MG TAB.ER.24H PO (08:31)
[2025-01-23] MEDS: Naltrexone HCl 50 MG TABLET PO (08:31)
[2025-01-23] MEDS: Thiamine HCL 100 MG TABLET PO (08:31)
--- NOTE | 2025-01-23 09:20 | PC.RT ---
pt using his own cpap for sleep.
[2025-01-23] MEDS: Atorvastatin Calcium 80 MG TABLET PO (09:38)
--- NOTE | 2025-01-23 11:06 | HO.PSYCHPN ---
Subjective Subjective Date of Service: 01/23/25 Reason For Visit: Crisis Subjective Notes: Conditional Voluntary Interim History: Active on unit, social with peers. attending groups. Patient reports feeling good and looking forward to going to program. Patient stated, I'm doing pretty good and thinking positive ; denies SI/HI/VH/AH. Plan to discharge tomorrow to program; pt aware. Medication Compliance: Yes Side effects from medications: No Attending Groups: Yes Mental Status Exam Mental Status Exam Narrative: Pt is alert and oriented; behavior is cooperative and calm; dressed in casual attire; mood is described as pretty good ; eye contact appropriate; Speech is normal rate, volume and not pressured; thought process is organized and goal directed; Thought content is on tx; denies SI/HI/VH/AH. Diagnostics Vital Signs (24Hr): Vital Signs - 24 hr 01/22/25 20:00 01/23/25 07:35 Temperature 98.5 F 98.5 F Pulse Rate 77 90 Respiratory Rate 18 16 Blood Pressure 143/82 H 139/63 Pulse Oximetry 97 95 Oxygen Delivery Method Room Air Room Air BMI result Body Mass Index 40.1 Labs 01/14/25 16:01 01/21/25 08:13 Medications Medications Current Medications Acetaminophen (Acetaminophen 325 Mg Tablet) 650 mg PO Q6H PRN PRN Reason: Headache/Pain, Scale 1-10 Al Hydroxide/Mg Hydroxide (Magnesium Hydrox/Alum Hydrox 30 Ml Oral.Susp) 30 ml PO Q6H PRN PRN Reason: Heartburn/Nausea Aripiprazole (Aripiprazole 2 Mg Tablet) 2 mg PO BEDTIME [facility] Last Admin: 01/22/25 22:18 Dose: 2 mg Atenolol (Atenolol 25 Mg Tablet) 25 mg PO DAILY [facility] Last Admin: 01/23/25 08:30 Dose: 25 mg Atorvastatin Calcium (Atorvastatin Calcium 80 Mg Tablet) 80 mg PO DAILY [facility] Last Admin: 01/23/25 09:38 Dose: 80 mg Bupropion HCl (Bupropion Hcl Xl 300 Mg Tab.Er.24h) 300 mg PO DAILY [facility] Last Admin: 01/23/25 08:30 Dose: 300 mg Hydrochlorothiazide (Hydrochlorothiazide 25 Mg Tablet) 12.5 mg PO DAILY [facility] Last Admin: 01/23/25 08:30 Dose: 12.5 mg Hydroxyzine HCl (Hydroxyzine Hcl 25 Mg Tablet) 25 mg PO Q6H PRN PRN Reason: mild anxiety Last Admin: 01/23/25 01:51 Dose: 25 mg Lisinopril (Lisinopril 20 Mg Tablet) 20 mg PO DAILY [facility] Last Admin: 01/23/25 08:30 Dose: 20 mg Magnesium Hydroxide (Milk Of Magnesia 30 Ml Oral.Susp) 30 ml PO DAILY PRN PRN Reason: Constipation Metformin HCl (Metformin Hcl Er 500 Mg Tab.Er.24h) 500 mg PO DAILY [facility] Last Admin: 01/23/25 08:31 Dose: 500 mg Naltrexone HCl (Naltrexone Hcl 50 Mg Tablet) 50 mg PO DAILY [facility] Last Admin: 01/23/25 08:31 Dose: 50 mg Nicotine Polacrilex (Nicotine Polacrilex 2 Mg Gum) 4 mg BUCCAL Q2H PRN PRN Reason: Nicotine Cravings Ondansetron HCl (Ondansetron Odt 8 Mg Tab.Rapdis) 8 mg TRANSLINGU Q12H PRN PRN Reason: Nausea and Vomiting Quetiapine Fumarate (Quetiapine Fumarate 50 Mg Tablet) 50 mg PO Q4H PRN PRN Reason: severe anxiety Last Admin: 01/23/25 10:34 Dose: 50 mg Tamsulosin HCl (Tamsulosin Hcl 0.4 Mg Capsule) 0.4 mg PO BEDTIME [facility] Last Admin: 01/22/25 22:18 Dose: 0.4 mg Thiamine HCl (Thiamine Hcl 100 Mg Tablet) 100 mg PO DAILY [facility] Last Admin: 01/23/25 08:31 Dose: 100 mg Trazodone HCl (Trazodone Hcl 50 Mg Tablet) 50 mg PO BEDTIME MRX1 PRN PRN Reason: Insomnia Allergies Allergies Allergy/AdvReac Type Severity Reaction Status Date / Time No Known Allergies Allergy Verified 01/14/25 15:32 Assessment & Plan Assessment & Plan (1) MDD (major depressive disorder), recurrent episode, moderate: Status: Acute Code(s): F33.1 - Major depressive disorder, recurrent, moderate (2) PTSD (post-traumatic stress disorder): Status: Acute Code(s): F43.10 - Post-traumatic stress disorder, unspecified (3) Alcohol use disorder: Status: Acute Code(s): F10.90 - Alcohol use, unspecified, uncomplicated Plan Patient is a 54-year-old male with history of MDD, PTSD, alcohol use disorder who self presented to ER due to suicidal ideation secondary to increased depression. Plan: CV 15 minute safety checks Continue home medications Start: Wellbutrin XL 150 mg PO daily Abilify 2 mg PO bedtime CIWA protocol-continue phenobarbital taper from ED Obtain collateral Encourage groups Consult to addiction medicine Referral to outpatient psychiatric providers Referral to substance abuse program Discharge planning 01/17: Showered. keeping to self. Depressed. Anxious. Patient reports passive suicidal ideation; pt stated, I'm tired of dealing with life . denies any plan or intent. Continue with phenobarbital taper and CIWA. Patient reports nausea; start: Zofran 8mg PO Q8HR PRN. per nursing, slept 7 hours. denies HI/VH/AH. Continue current tx plan. 01/18: Patient continues depressed and anxious; pt stated, I pray that I could and start all over again . Patient reports he has been keeping to himself and praying; pt requested to speak with clergy, nursing aware. Pt continues to report withdrawal symptoms but feels symptoms are decreasing. Continue with phenobarbital taper and CIWA. Plan to increase Wellbutrin dose on Thursday. Patient has phone screen today with substance abuse program. 01/19: Active on unit, attending groups. social with peers. Patient continues depressed and anxious; pt stated, I'm feeling more hopeful knowing that I'm going to a program after here . Pt reports feeling nervous about his mother and girlfriend visiting this afternoon. Wellbutrin increased to 300mg PO daily. Pt reports interest in starting Naltrexone; risks/benefits reviewed. Start: Naltrexone 50mg PO daily. 01/20: Patient reports feeling improved today. he denies any withdrawal symptoms; phenobarbital taper complete. DC CIWA. per nursing, slept 7 hours last night. Plan to go to substance abuse program on Thursday; pt reports he is looking forward to it. denies SI/HI/VH/AH. Continue current tx plan. 01/21: anxious re landlord's looking to speak with him. alcohol dreams last night. looking forward to [facility]. 01/22: stable presentation. anxious about post-DC relapse. continue current mgmt. 01/23:Active on unit, social with peers. attending groups. Patient reports feeling good and looking forward to going to program. Patient stated, I'm doing pretty good and thinking positive ; denies SI/HI/VH/AH. Plan to discharge tomorrow to program; pt aware. Patient educated on: diagnosis and medication risk/benefits Reason for continued inpatient stay Substantial Risk for: stable for discharge Time Spent With Patient Time: Total time managing care of this patient today _20___ minutes.
[2025-01-23 20:00] VITALS: BP 115/68; PULSE 82; RESP 16; TEMP 36.9; O2SAT 98
[2025-01-23] MEDS: ARIPiprazole 2 MG TABLET PO (23:13)
[2025-01-23] MEDS: Tamsulosin HCL 0.4 MG CAPSULE PO (23:13)
[2025-01-24] MEDS: QUEtiapine Fumarate 50 MG TABLET PO ×3 (00:30→08:37)
[2025-01-24 07:05] VITALS: BP 126/80; PULSE 90; RESP 16; TEMP 2.5; TEMP 36.5; O2SAT 96
[2025-01-24] MEDS: atenoloL 25 MG TABLET PO (08:07)
[2025-01-24] MEDS: Naltrexone HCl 50 MG TABLET PO (08:07)
[2025-01-24] MEDS: Thiamine HCL 100 MG TABLET PO (08:07)
[2025-01-24] MEDS: metFORMIN HCl ER 500 MG TAB.ER.24H PO (08:07)
[2025-01-24] MEDS: hydroCHLOROthiazide 25 MG TABLET 12.5 MG PO (08:07)
[2025-01-24] MEDS: Atorvastatin Calcium 80 MG TABLET PO (08:07)
[2025-01-24] MEDS: lisinopriL 20 MG TABLET PO (08:08)
[2025-01-24] MEDS: buPROPion HCl XL 300 MG TAB.ER.24H PO (08:08)
--- NOTE | 2025-01-24 09:15 | P.DS_ITS ---
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 Has provider been notified: No Attending physician on discharge: Abraham Rojas Discharging clinician: Louise Pickering DS: Diagnosis Discharge Diagnosis (1) MDD (major depressive disorder), recurrent episode, moderate: Status: Acute (2) PTSD (post-traumatic stress disorder): Status: Acute (3) Alcohol use disorder: Status: Acute DS: Medications Discharge Medications Home Medications: Previous Rx's ?Medication ?Instructions ?Recorded aripiprazole 2 mg tablet (Abilify) 2 mg PO BEDTIME 30 days #30 tabs 01/23/25 atenolol 25 mg tablet 25 mg PO DAILY 30 days #30 tabs 01/23/25 atorvastatin 80 mg tablet 80 mg PO DAILY 30 days #30 tabs 01/23/25 bupropion HCl 300 mg 24 hr tablet, 300 mg PO DAILY 30 days #30 tabs 01/23/25 extended release hydrochlorothiazide 25 mg tablet 12.5 mg (1/2 x 25 mg) PO DAILY 30 01/23/25 days #15 tabs lisinopril 20 mg tablet 20 mg PO DAILY 30 days #30 tabs 01/23/25 metformin 500 mg tablet,extended 500 mg PO DAILY 30 days #30 tabs 01/23/25 release 24 hr naltrexone 50 mg tablet 50 mg PO DAILY 30 days #30 tabs 01/23/25 quetiapine 50 mg tablet 50 mg PO TID PRN severe anxiety 30 01/23/25 days #90 tabs tamsulosin 0.4 mg capsule 0.4 mg PO BEDTIME 30 days #30 caps 01/23/25 thiamine mononitrate (vit B1) 100 100 mg PO DAILY 30 days #30 tabs 01/23/25 mg tablet Mental Status Exam Mental Status Exam Narrative: Pt is alert and oriented; behavior is cooperative and calm; dressed in casual attire; mood is described as good ; eye contact appropriate; Speech is normal rate, volume and not pressured; thought process is organized; Thought content is on tx; denies SI/HI/VH/AH. Data Data Completed and Pending Completed studies during hospitalization [Text1]: 01/21/25 08:13 Creatinine 1.24 Estim Creat Clear Calc 88.2 Estimated GFR > 60 DS: Summary Hospital Course Hospital Course: Patient is a 54-year-old male with history of MDD, PTSD, alcohol use disorder who self presented to ER due to suicidal ideation secondary to increased depression. Per crisis report, patient presented to ED due to suicidal ideation stating he wants whatever we will make me feel better. Patient reports he has been using alcohol as a coping mechanism for his depression and anxiety. He reports lack of motivation to go to work, racing thoughts, heightened worry and daily stomach pain attributed to anxiety. Tearful during assessment. He reports poor sleep due to racing thoughts. Patient does not take any psychiatric medications at this time. History of 1 prior psychiatric admission 4 years ago due to worsening depression. Denies history of SA/SIB. History of detox admissions. He reports he has never been sober. ETOH level 174 in ER. He reports drinking 20 nips daily. During admission assessment, patient presents alert and oriented x3. Calm and cooperative. Patient reports feeling anxious and depressed; patient reports he feels that his drinking has become more. Patient stated, work has been getting stressful. My girlfriend wants our relationship to be more serious. I have anxiety and to calm my nerves, alcohol is the only thing that calms me down . History of taking Prozac for 2-3 years which he reports was not beneficial and side effects of decreased libido. Patient reports last time he was sober was over 10 years ago. Patient states suicidal ideation with no plan. Denies history of withdrawal seizures. Patient reports he is interested in obtaining a womens volleyball coach and being referred to a substance abuse program. He reports he would also like referrals to outpatient psychiatric providers. Discussed starting on Wellbutrin and Abilify; risks/benefits reviewed. Plan: CV 15 minute safety checks Continue home medications Start: Wellbutrin XL 150 mg PO daily Abilify 2 mg PO bedtime CIWA protocol-continue phenobarbital taper from ED Obtain collateral Encourage groups Consult to addiction medicine Referral to outpatient psychiatric providers Referral to substance abuse program Discharge planning Showered. keeping to self. Depressed. Anxious. Patient reports passive suicidal ideation; pt stated, I'm tired of dealing with life . denies any plan or intent. Continue with phenobarbital taper and CIWA. Patient reports nausea; st art: Zofran 8mg PO Q8HR PRN. per nursing, slept 7 hours. denies HI/VH/AH. Continue current tx plan. Patient continues depressed and anxious; pt stated, I pray that I could and start all over again . Patient reports he has been keeping to himself and praying; pt requested to speak with clergy, nursing aware. Pt continues to report withdrawal symptoms but feels symptoms are decreasing. Continue with phenobarbital taper and CIWA. Plan to increase Wellbutrin dose on Thursday. Patient has phone screen today with substance abuse program. Active on unit, attending groups. social with peers. Patient continues depressed and anxious; pt stated, I'm feeling more hopeful knowing that I'm going to a program after here . Pt reports feeling nervous about his mother and girlfriend visiting this afternoon. Wellbutrin increased to 300mg PO daily. Pt reports interest in starting Naltrexone; risks/benefits reviewed. Start: Naltrexone 50mg PO daily. Patient reports feeling improved today. he denies any withdrawal symptoms; phenobarbital taper complete. DC CIWA. per nursing, slept 7 hours last night. Plan to go to substance abuse program on Thursday; pt reports he is looking forward to it. denies SI/HI/VH/AH. Continue current tx plan. anxious re landlord's looking to speak with him. alcohol dreams last night. looking forward to [facility]. stable presentation. anxious about post-DC relapse. continue current mgmt. Active on unit, social with peers. attending groups. Patient reports feeling good and looking forward to going to program. Patient stated, I'm doing pretty good and thinking positive ; denies SI/HI/VH/AH. Plan to discharge tomorrow to program; pt aware. Status at Discharge Cognitive/behavioral status at discharge: Patient has insight and demonstrates good judgment in terms of wanting to pursue treatment. Patient has a safety plan that includes presenting to the closest ER or calling 911 if feeling unsafe. Functional status at discharge: independent ambulation Overall status at discharge: patient is back to baseline Time Spent with Patient Time attestation: Total time managing care of this patient today _20___ minutes. Time spent: Less than 30 minutes Discharge Plan Discharge Anticipated Discharge Date/Time: 01/24/25 09:00 Patient Disposition: Home, Self-Care Discharge Diagnosis: MDD, PTSD, Alcohol use d/o Referrals: Naif Becerra PA [Primary Care Provider] - 1 Week ( 01-23-25 Your primary care provider has been notified of your discharge and will call us or you back with the date and time of the follow up appt.) Discharge Medications: New atorvastatin 80 mg Tablet 80 mg PO DAILY 30 Days Qty: 30 0RF lisinopril 20 mg Tablet 20 mg PO DAILY 30 Days Qty: 30 0RF thiamine mononitrate (vit B1) 100 mg Tablet 100 mg PO DAILY 30 Days Qty: 30 0RF metformin 500 mg Tablet Extended Release 24 Hr 500 mg PO DAILY 30 Days Qty: 30 0RF hydrochlorothiazide 25 mg Tablet 12.5 mg PO DAILY 30 Days Qty: 15 0RF quetiapine 50 mg Tablet 50 mg PO TID PRN (Reason: severe anxiety) 30 Days Qty: 90 0RF naltrexone 50 mg Tablet 50 mg PO DAILY 30 Days Qty: 30 0RF bupropion HCl 300 mg Tablet Extended Release 24 Hr 300 mg PO DAILY 30 Days Qty: 30 0RF aripiprazole [Abilify] 2 mg Tablet 2 mg PO BEDTIME 30 Days Qty: 30 0RF Continued atenolol 25 mg Tablet 25 mg PO DAILY 30 Days Qty: 30 0RF tamsulosin 0.4 mg Capsule 0.4 mg PO BEDTIME 30 Days Qty: 30 0RF Discontinued lisinopril 10 mg Tablet 10 mg PO DAILY hydrochlorothiazide 25 mg Tablet 12.5 mg PO DAILY metformin 500 mg Tablet Extended Release 24 Hr 500 mg PO DAILY rosuvastatin 40 mg Tablet 20 mg PO BEDTIME Discharge Orders: Discharge Order (Routine); Ordered 01/24/25 Ordered By: Louise Pickering Diet: Regular diet Activity on Discharge: As tolerated Stand Alone Forms: Patient Portal Discharge page, Community Support Print Language: Beninese Care Plan Goals: Maintain mood and safe behaviors Take medications as prescribed Continue to pursue sobriety Practice coping skills Continue with outpatient providers and reach out to them as needed Health Concerns: Mood stability and behaviors Sobriety Plan of Treatment: Follow up with your PCP, psychiatric provider and other outpatient providers regarding above concerns Take medications as prescribed Assessment: Patient has insight and demonstrates good judgment in terms of wanting to pursue treatment. Patient has a safety plan that includes presenting to the closest ER or calling 911 if feeling unsafe. Discharge Date/Time: 01/24/25 09:00
== END 2025-01-24 09:00 | disposition home or self-care (01) | DRG 751 ==
LOC: HO.ED 19:37 → HO.PADLT16 01-16 13:38
PROVIDERS: Physician Assistant; Physician Assistant Medical; Admitting Provider Registered Nurse; Emergency Provider Emergency Medicine; PCP Physician Assistant Medical; Responsible Provider Registered Nurse; Visit Provider Psychiatry & Neurology Psychiatry
DX: F33.1 Major depressive disorder, recurrent, moderate (principal); R45.851 Suicidal ideations; F43.10 Post-traumatic stress disorder, unspecified; F10.90 Alcohol use, unspecified, uncomplicated; Y90.6 Blood alcohol level of 120-199 mg/100 ml; Z79.899 Other long term (current) drug therapy
CPT/HCPCS: 36415; 80053; 80061; 80143; 80179; 80307; 81001; 82565; 82947; 83036; 85025; 93005; 94660; 99285; J2560; S9485

== ENCOUNTER → 2025-01-14 15:33 | Outpatient (BNV) | payer BC, SELFPAY | PROVIDERS: Emergency Provider Emergency Medicine; PCP Physician Assistant Medical; Visit Provider Internal Medicine | DX: R00.0 Tachycardia, unspecified (principal) | CPT/HCPCS: 93010 ==

== ENCOUNTER → 2025-01-16 13:37 | Outpatient (BNV) | payer BC, SELFPAY | PROVIDERS: Admitting Provider Registered Nurse; Emergency Provider Emergency Medicine; PCP Physician Assistant Medical; Responsible Provider Registered Nurse; Visit Provider Registered Nurse | DX: F33.1 Major depressive disorder, recurrent, moderate (principal); F43.11 Post-traumatic stress disorder, acute; F10.90 Alcohol use, unspecified, uncomplicated | CPT/HCPCS: 90792; 99232 ==